=== PATIENT | female | born 1950 | race Caucasian/White ===

== ENCOUNTER 2018-03-07 09:04 | Outpatient (CLI) | payer MEDICARE ==
--- NOTE | 2018-03-07 11:40 | CT ---
CT PULMONARY LUNG SCAN: HISTORY: Smoker for 41 years, smoking 1 pack a day. The patient does currently smoke. COMPARISON: A 12/09/2015 study. FINDINGS: The lungs are clear of any infiltrative process. There are some small ground-glass to semisolid nodu les within the right upper lobe. All of these measure in the 3 mm range. These are best seen on axi al image 28 as 3 nodules, all of which appear stable as compared to the prior examination. There are no additional new nodules seen. I do not appreciate any significant mediastinal adenopathy. There are some moderate coronary calcifi cations noted. Visualized liver parenchyma does not show any definite findings. Questionable slight nodular contour to the liver which may is incompletely visualized but could be slightly enlarged. T he spleen is also incompletely visualized but also may be slightly enlarged. A right pericardial lymph node is demonstrated. It is 12 mm in size and stable. IMPRESSION: 1. Lung RDS category 2 - negative: stable appearance to some small ground-glass nodules of the righ t upper lobe. 2. Incidental note is made of a suggestion of possibly some mild hepatosplenomegaly. Both the liver and spleen are incompletely visualized on this exam. Clinical correlation and correlation with lab values is suggested. RECOMMENDATIONS: 1. Low-dose CT followup in 1 year is recommended. 2. Moderate coronary artery calcifications are incidentally seen. POS: [facility]
== END 2018-03-07 09:05 | disposition home or self-care (01) ==
LOC: CT 09:04
PROVIDERS: ATTEND Nurse Practitioner
DX: F17.210 Nicotine dependence, cigarettes, uncomplicated (principal)
CPT/HCPCS: G0297

== ENCOUNTER 2018-03-26 11:22 | Outpatient (CLI) | payer MEDICARE | END 2018-03-26 11:23 | disposition home or self-care (01) | LOC: DTY/OP 11:22 | PROVIDERS: ATTEND Nurse Practitioner | DX: E11.9 Type 2 diabetes mellitus without complications (principal) | CPT/HCPCS: 97802 ==

== ENCOUNTER 2018-04-04 11:37 | Day surgery (SDC) | payer MEDICARE ==
[2018-04-03 12:18] VITALS: BMI 35.4
[2018-04-04] MEDS ORDERED: PROPOFOL 200 MG/20 ML VIAL ONE (19:59)
--- NOTE | 2018-04-04 21:30 | OP ---
DATE OF PROCEDURE: 04/04/2018 PROCEDURE PERFORMED: Esophagogastroduodenoscopy with biopsy and colonoscopy with polypectomy. INDICATION FOR PROCEDURE: Left lower quadrant abdominal pain, right lower quadrant abdominal pain, nausea, and vomiting. DESCRIPTION OF PROCEDURE: After the risks and benefits of the procedures were explained to the patient including risks of bleeding, infection, perforation, reactions to anesthesia, aspiration and/or pain, informed consent was obtained. The patient was then taken to the endoscopy suite, where deep sedation was administered via propofol and anesthesia support. Once adequate sedation was achieved, the standard gastroscope was introduced into the mouth with intubation of the esophagus, stomach and the proximal small intestine with the findings listed below. Upon completion of the EGD, all equipment was removed from the patient and the patient was then rotated 180 degrees on the bed in preparation for the colonoscopy. After a digital rectal examination, the standard colonoscope was introduced into the rectum and advanced to the cecum with some difficulty secondary to prep quality. The quality of the prep was fair to poor with the prep being fair within the transverse and left colon, but poor within the right colon with a significant amount of retained solid stool. The patient tolerated the procedure well with no immediate perioperative complications. Upon completion of the colonoscopy, the patient was taken to Day Stay in satisfactory condition. EGD FINDINGS: Esophagus: Normal-appearing mucosa was seen in the proximal and mid esophagus. Small (grade 1) esophageal varices were seen in the distal esophagus without any evidence of active/recent bleeding or high-risk stigmata of bleeding. There was no evidence of erosions, ulcerations, mass lesions, strictures/stenoses seen throughout the entire esophagus. Stomach: A moderate amount of diffuse red spots, measuring 1 to 2 mm in size were seen throughout the entire stomach without any associated erosions or ulcerations. Otherwise, the mucosa in the stomach appeared normal in the cardia, fundus, body, greater curvature, antrum, and incisura. There was no evidence of erosions, ulcerations, mass lesions, or active/recent bleeding. Duodenum: A 5- to 6-mm polyp was seen in the duodenal bulb at just proximal to the duodenal sweep. Multiple biopsies were taken from this polyp for evaluation and placed in a specimen jar. Otherwise, the duodenal bulb and second portion of the duodenum appeared normal without any evidence of erosions, ulcerations, mass, lesions or active/recent bleeding. IMPRESSION: 1. Small (grade 1) esophageal varices seen in the distal esophagus, that flattened upon insufflation. 2. Mild portal hypertensive gastropathy. 3. A 5- to 6-mm duodenal polyp, status post biopsies. COLONOSCOPY FINDINGS: Digital rectal exam, perianal skin tags and small external examinations were seen on external exam. Colon findings: A moderate amount of stool was seen in the left colon and transverse colon, that was somewhat amenable to aggressive irrigation and suctioning with adequate views for the evaluation of mucosal lesions greater than 5 mm in size. However, within the right colon, there was a significant amount of retained solid/adherent stool seen in the cecum and proximal ascending colon precluding visualization despite attempts to irrigate with extensive lavage. Of the mucosa seen, normal mucosa was seen at the ileocecal valve as well as at the appendiceal orifice and within the cecum itself. A 5- to 6-mm polyp was seen in the proximal ascending colon and completely removed with snare cautery polypectomy. It was completely removed and retrieved and placed in a specimen jar for evaluation. However, the mucosal defect made was a bit larger than anticipated, but subsequently closed with hemoclips x1 with good approximation of the mucosal defect. Two additional polyps were seen in the transverse colon, measuring approximately 4 to 6 mm in size and completely removed with snare cautery polypectomy. They were retrieved and placed in a specimen jar for evaluation. Normal-appearing mucosa was then seen in the descending colon and sigmoid colon; however, a 5- to 6-mm polyp was seen in the rectum and completely removed with snare cautery polypectomy. It was retrieved and placed in a specimen jar for evaluation. On rectal retroflexion, normal findings were seen. IMPRESSION: 1. A large amount of retained solid/adherent stool was seen throughout the entire colon with poor visualization within the right colon and fair visualization in the transverse and left colon. However, at this time, lesions less than 5 mm in size could have been missed. I would recommend a repeat colonoscopy within the next 6 to 12 months for completion. 2. We will follow up on the biopsy results both within the upper endoscopy and colonoscopy with further testing based on pathology report. 3. We will place the patient on PPI 40 mg daily for probable acid reflux symptoms. 4. Nonselective beta blockade is not indicated at this time, but would rather repeat the upper endoscopy in 2 years for esophageal varix surveillance. 5. I would recommend a higher fiber diet given the presence of hemorrhoids on external examination. 6. No etiology for her abdominal pains was seen during this examination increasing the likelihood of a possible IBS type picture. Job ID: [id number]
--- NOTE | 2018-04-20 09:03 | EKG ---
Test Reason : PREOP Blood Pressure : / mmHG Vent. Rate : 064 BPM Atrial Rate : 064 BPM P-R Int : 142 ms QRS Dur : 074 ms QT Int : 404 ms P-R-T Axes : 045 056 076 degrees QTc Int : 416 ms Normal sinus rhythm Anterior infarct , age undetermined T wave abnormality, consider lateral ischemia Abnormal ECG Confirmed by FRANNY CALLES MD ([id number]) on 04/20/2018 9:02:50 AM Referred By: JUJU Confirmed By:FRANNY CALLES MD
== END 2018-04-04 16:32 | disposition home or self-care (01) ==
LOC: SDC 11:37
PROVIDERS: ATTEND Internal Medicine
PROC: 0DB98ZZ Excision of Duodenum, Via Natural or Artificial Opening Endoscopic (ICD-10-PCS; principal; 2018-04-04)
PROC: 0DBK8ZZ Excision of Ascending Colon, Via Natural or Artificial Opening Endoscopic (ICD-10-PCS; 2018-04-04)
PROC: 0DBL8ZZ Excision of Transverse Colon, Via Natural or Artificial Opening Endoscopic (ICD-10-PCS; 2018-04-04)
PROC: 0DBP8ZZ Excision of Rectum, Via Natural or Artificial Opening Endoscopic (ICD-10-PCS; 2018-04-04)
DX: D12.2 Benign neoplasm of ascending colon (principal); D12.3 Benign neoplasm of transverse colon; D12.8 Benign neoplasm of rectum; K63.5 Polyp of colon; K31.7 Polyp of stomach and duodenum; K76.6 Portal hypertension; K31.89 Other diseases of stomach and duodenum; I85.00 Esophageal varices without bleeding; K64.4 Residual hemorrhoidal skin tags; I10 Essential (primary) hypertension; E11.9 Type 2 diabetes mellitus without complications; F41.9 Anxiety disorder, unspecified; F32.9 Major depressive disorder, single episode, unspecified; F17.210 Nicotine dependence, cigarettes, uncomplicated; G89.29 Other chronic pain; M25.562 Pain in left knee; M25.561 Pain in right knee; Z88.2 Allergy status to sulfonamides; Z88.8 Allergy status to other drugs, medicaments and biological substances; Z91.048 Other nonmedicinal substance allergy status; Z90.49 Acquired absence of other specified parts of digestive tract; Z98.51 Tubal ligation status; Z91.018 Allergy to other foods; Z79.4 Long term (current) use of insulin; Z79.899 Other long term (current) drug therapy; Z98.890 Other specified postprocedural states
CPT/HCPCS: 88305; 93005; 93010; J2704

== ENCOUNTER 2018-04-17 10:17 | Outpatient (CLI) | payer MEDICARE ==
--- NOTE | 2018-04-17 13:08 | CT ---
CT ABDOMEN AND PELVIS WITH CONTRAST: Technique: Multiple contiguous axial images were obtained through the abdomen and pelvis with IV enha ncement. Indications: Bi-lower quadrant abdominal pain. Nausea. Vomiting. FINDINGS: Lung bases are clear. Liver shows mild irregular contour. Spleen is upper normal size. Spleen is measured at 13.5 cm AP dim ension. Correlate clinically for cirrhosis and possibly early portal hypertension. There is a nodule involving the left adrenal gland measuring 1.7 cm. This nodule is indeterminate on this single phase contrasted study. The kidneys are unremarkable. Small bowel loops are normal caliber. Appendix not identified. Stool throughout the colon. No CT evidence of diverticulitis. Aorta normal c aliber. Images through the pelvis show unremarkable uterus and adnexa. No ascites. Left hip prosthesis. Osseous structures otherwise unremarkable. Uterus and adnexa appear unremarkable. There are numerous large venous varicosities seen in the adipose tissue of the lower abdomen and pelv is. There is a small umbilical hernia with mesenteric fat herniated through the defect. IMPRESSION: 1. The liver shows mild peripheral irregularity of the liver margin and there is a prominent caudate lobe. There is borderlines splenomegaly. Consider early cirrhosis and portal hypertension given the h istory of alcohol abuse. 2. Indeterminate left adrenal nodule. This nodule was imaged on low dose CT of 03-07-18 and 12-08-15 an d appears stable although the nodule is poorly evaluated on both exams due to low dose protocol. Stab ility, however, would indicate a benign lesion. 3. Small umbilical hernia. 4. Numerous subcutaneous varicosities seen in the lower abdomen and pelvis. POS: [facility]
== END 2018-04-17 10:18 | disposition home or self-care (01) ==
LOC: BICCT 10:17
PROVIDERS: ATTEND Internal Medicine
DX: R10.32 Left lower quadrant pain (principal); R10.31 Right lower quadrant pain; R13.10 Dysphagia, unspecified; R11.2 Nausea with vomiting, unspecified; R14.0 Abdominal distension (gaseous); E27.9 Disorder of adrenal gland, unspecified; K42.9 Umbilical hernia without obstruction or gangrene; I83.90 Asymptomatic varicose veins of unspecified lower extremity
CPT/HCPCS: 74177

== ENCOUNTER 2018-10-23 17:28 | Inpatient (IN) | payer MEDICARE ==
[2018-10-23 18:33] LABS: #Eosinphils 0.1 thou/uL (0.0-0.7); #Lymphocytes 1.3 thou/uL (1.20-3.40); #Monocytes 0.4 thou/uL (0.11-0.59); #Neutrophils 4.6 thou/uL (1.40-6.50); %Basophils 0.4 % (0.0-1.0); %Eosinophils 1.6 % (0.0-10.0); %Lymphocytes 20.1 % (21.0-51.0); %Monocytes 6.6 % (0.0-10.0); %Neutrophils 71.4 % (42.0-75.0); Hemoglobin 13.4 g/dL (12.0-16.0); Mean Corpuscular HGB CONC 31.3 g/dL (32.0-36.0); Mean Corpuscular Hemoglobin 29.8 pg (27.0-31.0); Mean Corpuscular Volume 95.2 fL (78.0-98.0); Mean Platelet Volume 8.9 fL (7.4-10.4); Platelet Count 123 thou/uL (130-400); RBC Distribution Width 12.6 % (11.5-14.5); Red Blood Cell (RBC) Count 4.51 mill/uL (4.20-5.40); White Blood Cell (WBC) Count 6.5 thou/uL (4.8-10.8)
[2018-10-23 18:53] LABS: ALT (SGPT) 19 U/L (8-55); AST (SGOT) 16 U/L (5-34); Albumin 3.5 g/dL (3.4-4.8); Alkaline Phosphatase 132 U/L (40-150); Anion Gap 11 mmol/L (10-20); BUN (Urea Nitrogen) 10 mg/dL (9.8-20.1); Bilirubin, Total 0.6 mg/dL (0.2-1.2); Calc. Creatinine Clearance 0 mL/min (70-130); Calcium 9.3 mg/dL (7.8-10.44); Carbon Dioxide 30 mmol/L (23-31); Chloride 102 mmol/L (98-107); Estimated GFR-MDRD 71; Globulin 4.4 g/dL (2.4-3.5); Glucose 136 mg/dL (80-115); Potassium 3.5 mmol/L (3.5-5.1); Protein, Total 7.9 g/dL (6.0-8.3); Sodium 139 mmol/L (136-145)
--- NOTE | 2018-10-23 19:46 | ULT ---
LEFT LOWER EXTREMITY VENOUS DOPPLER: 10/23/18 HISTORY: Pain, swelling and redness. COMPARISON: None. FINDINGS: Real time sanford scale, color Doppler and spectral analysis of the left lower extremity venous Doppler is performed. The common femoral, femoral, proximal portions of the greater saphenous and deep femo ral veins as well as the popliteal and posterior tibial veins were interrogated. Mild lower extremity edema. Normal flow, augmentation and compression. IMPRESSION: No deep venous thrombosis. Mild lower extremity edema. POS: [facility]
[2018-10-23] MEDS ORDERED: Ondansetron ODT 4 MG TAB PO PRN (20:01)
[2018-10-23] MEDS ORDERED: Dextrose 50% Abboject 50 ML SYRINGE SLOW IVP PRN (20:01)
[2018-10-23] MEDS ORDERED: Acetaminophen 325 MG TAB PO PRN (20:01)
[2018-10-23] MEDS ORDERED: Dextrose 5% in Water 1,000 ML IV PRN (20:01)
[2018-10-23] MEDS ORDERED: Ondansetron PF 4 MG/2 ML Vial IVP PRN (20:01)
[2018-10-23] MEDS ORDERED: Acetaminophen 650 MG Suppository PR PRN (20:01)
[2018-10-23 20:35] VITALS: BMI 35.6
[2018-10-23] MEDS: Piperacillin/Tazobactam 4.5 GM in Sodium Chloride 0.9% 100 ML IVPB SCH (22:00)
[2018-10-23] MEDS ORDERED: Gabapentin 300 MG CAP PO SCH (23:30)
[2018-10-23] MEDS ORDERED: FLUoxetine HCl 20 MG CAP PO SCH (23:30)
[2018-10-24 05:54] LABS: #Basophils 0.1 thou/uL (0.0-0.2); #Eosinphils 0.1 thou/uL (0.0-0.7); #Lymphocytes 1.3 thou/uL (1.20-3.40); #Monocytes 0.4 thou/uL (0.11-0.59); #Neutrophils 3.2 thou/uL (1.40-6.50); %Eosinophils 2.8 % (0.0-10.0); %Monocytes 7.2 % (0.0-10.0); Hemoglobin 11.7 g/dL (12.0-16.0); Mean Corpuscular HGB CONC 31.8 g/dL (32.0-36.0); Mean Corpuscular Hemoglobin 30.5 pg (27.0-31.0); Mean Corpuscular Volume 96.1 fL (78.0-98.0); Mean Platelet Volume 8.9 fL (7.4-10.4); Platelet Count 108 thou/uL (130-400); RBC Distribution Width 12.5 % (11.5-14.5); Red Blood Cell (RBC) Count 3.83 mill/uL (4.20-5.40); White Blood Cell (WBC) Count 5.1 thou/uL (4.8-10.8)
[2018-10-24] MEDS: Piperacillin/Tazobactam 4.5 GM in Sodium Chloride 0.9% 100 ML IVPB SCH ×3 (06:00→21:21)
[2018-10-24 06:16] LABS: Anion Gap 11 mmol/L (10-20); BUN (Urea Nitrogen) 13 mg/dL (9.8-20.1); Calc. Creatinine Clearance 97 mL/min (70-130); Calcium 8.5 mg/dL (7.8-10.44); Carbon Dioxide 27 mmol/L (23-31); Chloride 103 mmol/L (98-107); Estimated GFR-MDRD 71; Glucose 232 mg/dL (80-115); Potassium 3.8 mmol/L (3.5-5.1); Sodium 137 mmol/L (136-145)
[2018-10-24] MEDS: HumaLOG 300 UNITS/3 ML VIAL SC PRN ×4 (06:35→20:49)
--- NOTE | 2018-10-24 07:46 | HP ---
PRIMARY CARE DOCTOR: Not reported. CODE STATUS: Full code. TIME OF EVALUATION: 8 p.m. CHIEF COMPLAINT: Left lower extremity swelling. HISTORY OF PRESENT ILLNESS: This is a 68-year-old female patient with past medical history of liver cirrhosis, hep C, diabetes type 2, hypertension, came to the hospital after having left lower extremity swelling very severe with no clear triggers, no alleviating factors. Symptoms had been getting worse over the past week. Associated with redness, swelling, ulcerations, decreased range of motion , tenderness. The patient also reported having some fever when she was at her PCP. Of note, the patient also had some multiple DVTs in the past and had been on anticoagulation, but had ran out of blood thinners recently. REVIEW OF SYSTEMS: CONSTITUTIONAL: The patient has fever. No chills or generalized weakness. RESPIRATORY: No cough, sputum production, or shortness of breath. CARDIOVASCULAR: No chest pain or palpitation. GASTROINTESTINAL: No nausea, vomiting, diarrhea, or abdominal pain. SWITCH OPERATOR: No dizziness, headache, or feeling lightheaded. GENITOURINARY: No burning on urination. EXTREMITIES: Bilateral leg swelling as described in HPI. All other systems were reviewed and negative except for the findings mentioned above. PAST MEDICAL HISTORY: As mentioned in the HPI. FAMILY HISTORY: Reviewed, noncontributory to current presentation PAST SURGICAL HISTORY: Left hip replacement, appendectomy. PSYCHIATRIC HISTORY: Includes depression. SOCIAL HISTORY: The patient drinks socially every week. The patient denies drug use. The patient currently use tobacco, smoke cigarettes, smoked for 30 years, smoked one pack per day. KNOWN ALLERGIES: Dexatrim Natural, divalproex, sulfa, Wellbutrin. REPORTED MEDICATIONS: 1. Gabapentin. 2. Lantus. 3. Lasix. 4. Magnesium sulfate. 5. Prozac. 6. NovoLog. 7. Metformin. 8. Metoprolol. 9. Pramipexole. 10. Eliquis. The patient has not been taking medications due to financial issues. PHYSICAL EXAMINATION: VITAL SIGNS: On presentation, blood pressure 171/108 with heart rate 105, respiratory rate was 20, temperature 98.4, and oxygen saturation was 100% on room air. GENERAL: The patient is alert, oriented, not in acute distress. HEAD: Eyes, normal conjunctivae. Moist oral mucosa. Anicteric. No JVD. RESPIRATORY: Bilateral air entry. No rales. No wheezes. Symmetric expansion. CARDIOVASCULAR: Normal rate, regular rhythm. No murmurs. No gallop. Bilateral leg edema as described in extremities. ABDOMEN: Soft. Normal bowel sounds. MUSCULOSKELETAL: Baseline range of motion and strength. SKIN: Warm, intact. No pallor. No rash except for bilateral lower extremities where the patient has chronic atrophic changes with darkening of bilateral legs and the left side is worse with increased redness, nonhealing ulcers, some __, decreased range of motion due to tenderness. Capillary refill seems to be intact. NEUROLOGIC: No evidence of any new focal weakness. Cranial nerves seem to be intact. PSYCH: The patient is in good mood. No anxiety. Optimal judgment. DIAGNOSTIC DATA: Vascular ultrasound, the patient has no deep venous thrombosis. Mild lower extremity edema. LABORATORY DATA: Reviewed. The patient has white count 6.5, hemoglobin 13.4, MCV 95.2, platelet count 133. Sodium 139, potassium 3.5, chloride 102, carbon dioxide 30, anion gap 11, BUN 10, creatinine 0.81, GFR 71, glucose 136. LFTs were negative. Beta-natriuretic peptide 37. ASSESSMENT AND PLAN: The patient will be placed in the hospital with following medical problems: 1. Lower extremity cellulitis. The patient has history of diabetes. We will cover the patient with broad-spectrum antibiotics including for Staph, gram-negative anaerobes, we will follow cultures, we will treat accordingly. 2. Uncontrolled diabetes with blood sugar of 136. We will start the patient on sliding scale for optimal control. Low carb diet is recommended. We will adjust the treatment depending on the patient's response to treatment. 3. History of hepatitis C, this is chronic, monitor. Reconcile home medications. 4. Uncontrolled hypertension. The patient presented with systolic 171, diastolic 108, reconcile home medications. The patient was not taking medications due to social issues. 5. Diabetic polyneuropathy. Continue gabapentin. Reconcile hospital and home medications. 6. The patient has chronic multiple deep vein thrombosis. The patient had been on Eliquis before, but ran out of medication due to financial issues. We will continue the patient on Eliquis as inpatient, will need case managers to assess the patient for any possibility to assist financially to manage medications. 7. Deep venous thrombosis prophylaxis, the patient is on anticoagulation. Job ID: [id number] MTDD
[2018-10-24] MEDS: Pramipexole Di-HCl 1 MG TAB PO PRN (07:54)
[2018-10-24] MEDS: Vancomycin HCl 1.25 GM in Sodium Chloride 0.9% 250 ML 250 ML IVPB SCH (08:15)
[2018-10-24] MEDS: Apixaban 2.5 MG TAB PO SCH ×2 (08:15→20:54)
[2018-10-24] MEDS ORDERED: Enoxaparin Sodium 40 MG/0.4 ML SYRINGE SC SCH (09:00)
--- NOTE | 2018-10-24 17:29 | PDOC.PN ---
- Subjective Encounter Start Date: 10/24/18 Encounter Start Time: 10:00 Pt seen for followup re: leg wounds. c/o discharge from LLE wounds. - Objective Resuscitation Status - Order Detail: 10/23/18 20:01 Resuscitation Status Routine Resuscitation Status: FULL: Full Resuscitation MAR Reviewed: Yes Vital Signs & Weight: Vital Signs (12 hours) Temp Pulse Resp BP BP Pulse Ox 10/24/18 15:18 97.6 F 78 18 136/79 97 10/24/18 11:53 98 F 83 18 157/94 H 95 10/24/18 08:00 95 10/24/18 07:27 97.8 F 77 18 132/75 95 Weight Admit Weight 201 lb Weight 201 lb I&O: 10/23/18 10/24/18 10/25/18 06:59 06:59 06:59 Intake Total 480 Balance 480 Result Diagrams: 10/24/18 05:21 10/24/18 05:21 Additional Labs: Accuchecks 10/24/18 10/24/18 10/24/18 16:02 10:54 04:19 POC Glucose 240 H 299 H 245 H 10/23/18 20:38 POC Glucose 146 H Labs reviewed by me Phys Exam - Physical Examination Obese HEENT: moist MMs Neck: supple Respiratory: clear to auscultation bilateral Cardiovascular: RRR Gastrointestinal: soft Neurological: moves all 4 limbs Psychiatric: normal affect Deviation from normal: wounds as documented Dx/Plan (1) Cellulitis Code(s): L03.90 - CELLULITIS, UNSPECIFIED Status: Acute Comment: continue IV Zosyn and IV vancomycin (2) DM2 (diabetes mellitus, type 2) Status: Chronic Comment: continue accuchecks, insulin sliding scale (3) HTN (hypertension) Code(s): I10 - ESSENTIAL (PRIMARY) HYPERTENSION Status: Chronic Comment: monitor vital signs, initiate antihypertensives as needed - Plan continue antibiotics, PT/OT, out of bed/ambulate * . Pt has been started on apixaban for previously diagnosed DVT Review of Systems - Review of Systems Constitutional: negative: fever, chills, sweats, weakness, malaise Cardiovascular: negative: chest pain, palpitations, orthopnea, paroxysmal nocturnal dyspnea, edema, light headedness Skin: Rash, Lesions. negative: Steve, Bruising - Medications/Allergies Allergies/Adverse Reactions: Allergies Allergy/AdvReac Type Severity Reaction Status Date / Time Guinean ginseng Allergy Verified 10/23/18 20:48 [From Dexatrim Natural] bupropion Allergy Verified 10/23/18 20:48 chromium dinicotinate Allergy Verified 10/23/18 20:48 [From Dexatrim Natural] divalproex sodium Allergy Verified 10/23/18 20:48 [From Depakote] green tea Allergy Verified 10/23/18 20:48 [From Dexatrim Natural] Sulfa (Sulfonamide Allergy Verified 10/23/18 20:48 Antibiotics) Medications: Current Medications Acetaminophen (Tylenol) 650 mg PO Q4H PRN PRN Reason: Headache/Fever/Mild Pain (1-3) Last Admin: 10/24/18 15:15 Dose: 650 mg Acetaminophen (Tylenol) 650 mg AK Q4H PRN PRN Reason: Headache/Fever/Mild Pain (1-3) Apixaban (Eliquis) 2.5 mg PO BID [facility] Last Admin: 10/24/18 08:15 Dose: 2.5 mg Dextrose/Water (Dextrose 50%) 25 gm SLOW IVP PRN PRN PRN Reason: Hypoglycemia Dicyclomine HCl (Bentyl) 20 mg PO BIDPRN PRN PRN Reason: GI Cramping Fluoxetine HCl (Prozac) 20 mg PO QPM ALEYDA Gabapentin (Neurontin) 300 mg PO HS [facility] Glucagon (Glucagon) 1 mg IM PRN PRN PRN Reason: Hypoglycemia Dextrose/Water (D5w) 1,000 mls @ 0 mls/hr IV .Q0M PRN PRN Reason: Hypoglycemia Piperacillin Sod/Tazobactam (Sod 4.5 gm/ Sodium Chloride) 100 mls @ 200 mls/hr IVPB Q8HR [facility] Last Admin: 10/24/18 14:09 Dose: 100 mls Vancomycin HCl 1.25 gm/ Sodium (Chloride) 250 mls @ 166.667 mls/hr IVPB DAILY [facility] Last Admin: 10/24/18 08:15 Dose: 250 mls Insulin Human Lispro (Humalog) 0 units SC .MILD SLIDING SCALE PRN PRN Reason: Mild Correctional Scale Last Admin: 10/24/18 16:41 Dose: 3 unit Metoprolol Succinate (Toprol Xl) 25 mg PO QAM [facility] Last Admin: 10/24/18 07:54 Dose: 25 mg Miscellaneous Medication (Pharmacy To Dose) 1 each IVPB PRN PRN PRN Reason: sssi Stop: 11/02/18 20:14 Ondansetron HCl (Zofran Odt) 4 mg PO Q6H PRN PRN Reason: Nausea/Vomiting Ondansetron HCl (Zofran) 4 mg IVP Q6H PRN PRN Reason: Nausea/Vomiting Pramipexole Dihydrochloride (Mirapex) 1.5 mg PO TIDPRN PRN PRN Reason: Restless legs Last Admin: 10/24/18 07:54 Dose: 1.5 mg
[2018-10-24] MEDS ORDERED: Calcium Carbonate 500 MG ChewTAB PO PRN (19:06)
[2018-10-24] MEDS: Morphine 2 MG/ML SYRINGE SLOW IVP PRN (19:35)
[2018-10-24] MEDS: Dicyclomine 20 MG TAB PO PRN (20:52)
[2018-10-24] MEDS: FLUoxetine HCl 20 MG CAP PO SCH (20:52)
[2018-10-24] MEDS: Gabapentin 300 MG CAP PO SCH (20:52)
[2018-10-24] MEDS ORDERED: Dextrose 5% in Water 1,000 ML IV PRN (21:48)
[2018-10-24] MEDS ORDERED: HumaLOG 300 UNITS/3 ML VIAL SC PRN (21:48)
[2018-10-25] MEDS: Morphine 2 MG/ML SYRINGE SLOW IVP PRN ×3 (04:05→22:39)
[2018-10-25] MEDS: Piperacillin/Tazobactam 4.5 GM in Sodium Chloride 0.9% 100 ML IVPB SCH ×2 (05:16→14:11)
[2018-10-25] MEDS: HumaLOG 300 UNITS/3 ML VIAL SC PRN ×3 (05:20→16:46)
[2018-10-25] MEDS: Apixaban 2.5 MG TAB PO SCH ×2 (08:03→20:39)
[2018-10-25] MEDS: Pramipexole Di-HCl 1 MG TAB PO PRN (08:12)
[2018-10-25] MEDS: Vancomycin HCl 1.25 GM in Sodium Chloride 0.9% 250 ML 250 ML IVPB SCH (09:32)
[2018-10-25] MEDS ORDERED: Famotidine 20 MG TAB PO SCH (14:30)
--- NOTE | 2018-10-25 15:16 | CON ---
DATE OF CONSULTATION: 10/25/2018 REASON FOR CONSULTATION: Cellulitis, left leg. HISTORY OF PRESENT ILLNESS: A 68-year-old with a history of type 2 diabetes, reported hepatitis C, although this is not yet confirmed by the patient and liver cirrhosis, who has chronic venous stasis dermatitis, venous insufficiency with ulcerations. The patient developed worsening inflammatory changes with pain in the left the leg and was brought in because of that. No fever or chills. No headaches. No sore throat, odynophagia, or dysphagia. No dyspnea or chest pain. No diarrhea. No genitourinary symptoms. PAST MEDICAL HISTORY: Type 2 diabetes, hypertension; reported chronic hep C, although this needs to be confirmed; liver cirrhosis, chronic stasis dermatitis, venous insufficiency with ulcerations in lower extremities. PAST SURGICAL HISTORY: Left hip replacement, appendectomy. SOCIAL HISTORY: Drinks on a weekly basis. Reportedly used to drink heavily in the past, but cut down about 8 years ago. Current smoker about a pack a day. CURRENT MEDICATIONS: 1. Tylenol. 2. Eliquis. 3. Dextrose. 4. Bentyl. 5. Pepcid. 6. Prozac. 7. Neurontin. 8. Insulin. 9. Metoprolol. 10. Ondansetron. 11. Zosyn. 12. Vancomycin. PHYSICAL EXAMINATION: VITAL SIGNS: T-max 98, blood pressure 120/70, pulse 63, respirations 18, O2 saturation 96 on room air. SKIN: Stasis dermatitis changes in both right and left legs. Multiple small ulcerations in the left leg. There is a linear bigger one in the lateral aspect of the left leg, which measures about 4.5 cm with a fresh red base and light yellow hyperkeratosis around the ulcer. There is erythema in the left leg, which is confluent. More proximally right above the left knee lateral aspect, there is an area of ulceration covered with dark scab with surrounding erythema, which is markedly tender to palpation. No drainage is noted. The patient is voiding in the toilet. She has a peripheral IV access. No Welsh catheter. No lymphadenopathy. Ocular movements are conjugate. Oral cavity with numerous missing teeth. Remainder of ones with marked decay. NECK: Supple. No jugular vein distention. LUNGS: Symmetric air entry. HEART: S1, S2. Regular rate and rhythm. No S3 or S4. ABDOMEN: Slightly distended. Question of hepatomegaly about 3 cm below the right costal margin. No splenomegaly. No bladder distention. EXTREMITIES: Chronic osteoarthrosis in knees and ankles. Pulses, faintly palpable dorsalis pedis pulses. I could not feel posterior tibialis. Popliteals are 1+. She is able to move extremities on command. NEUROLOGIC: She is awake, oriented, and follows commands. LABORATORY DATA: White cell count was 6.5 and 5.1, hemoglobin 13.4, platelets 123, 71.4% neutrophils. Sodium 137, creatinine 0.81. Liver enzymes normal. Albumin 3.5. Hepatitis C antibody was nonreactive. Two sets of blood culture, no growth at 48 hours. IMAGING STUDIES: Duplex ultrasound showed no evidence of deep vein thrombosis. Abdominal and pelvis CT from April of this year showed findings consistent with cirrhosis with portal hypertension, varicosities seen in the lower abdomen and pelvis. There is a pathology from duodenal and large intestine polyp biopsy, which showed tubular adenoma. ASSESSMENT: 1. Type 2 diabetes. 2. Liver cirrhosis probably due to alcoholism, probably some element of steatohepatitis as well. 3. Venous insufficiency with small ulcers in the left leg, possible superimposed cellulitis. DISCUSSION: The patient has mild cellulitis and she does have some areas with crusting and ulceration. The risk of Staphylococcus aureus infection is a bit higher than the average. The typical organisms associated with cellulitis including beta-hemolytic streptococci, are broadened to gram-negative rods in the case of patients with cirrhosis including E. coli, Pseudomonas, etc. We will switch to cefepime, which has better streptococcal coverage. Discontinue Zosyn. Continue vancomycin. Evidently, the patient is at high risk for future complications in view of the continuing smoking and the fact that she has not completely discontinued alcoholic beverage use. Job ID: [id number]
--- NOTE | 2018-10-25 16:39 | PDOC.PN ---
- Subjective Encounter Start Date: 10/25/18 Encounter Start Time: 09:40 Pt seen for followup re; cellulitis. Feels better. - Objective Resuscitation Status - Order Detail: 10/23/18 20:01 Resuscitation Status Routine Resuscitation Status: FULL: Full Resuscitation MAR Reviewed: Yes Vital Signs & Weight: Vital Signs (12 hours) Temp Pulse Resp BP BP Pulse Ox 10/25/18 12:38 97.6 F 63 18 127/78 96 10/25/18 08:00 97.7 F 65 14 124/78 97 Weight Admit Weight 201 lb Weight 201 lb I&O: 10/24/18 10/25/18 10/26/18 06:59 06:59 06:59 Intake Total 1740 600 Balance 1740 600 Result Diagrams: 10/24/18 05:21 10/24/18 05:21 Additional Labs: Accuchecks 10/25/18 10/24/18 05:22 20:50 POC Glucose 210 H 266 H Labs reviewed by me Phys Exam - Physical Examination Obese HEENT: moist MMs Neck: supple Respiratory: clear to auscultation bilateral Cardiovascular: RRR Gastrointestinal: soft Neurological: moves all 4 limbs Psychiatric: normal affect Deviation from normal: wounds as documented Dx/Plan (1) Cellulitis Code(s): L03.90 - CELLULITIS, UNSPECIFIED Status: Acute Comment: continue IV cefepime and IV vancomycin (2) DM2 (diabetes mellitus, type 2) Status: Chronic Comment: continue accuchecks, insulin sliding scale; resume lantus insulin (3) HTN (hypertension) Code(s): I10 - ESSENTIAL (PRIMARY) HYPERTENSION Status: Chronic Comment: controlled - Plan * . Review of Systems - Review of Systems Gastrointestinal: negative: Nausea, Vomiting, Abdominal Pain, Diarrhea, Constipation, Melena, Hematochezia Genitourinary: negative: Dysuria, Frequency, Incontinence, Hematuria, Retention Musculoskeletal: Leg Pain, Foot Pain - Medications/Allergies Allergies/Adverse Reactions: Allergies Allergy/AdvReac Type Severity Reaction Status Date / Time Comoran ginseng Allergy Verified 10/23/18 20:48 [From Dexatrim Natural] bupropion Allergy Verified 10/23/18 20:48 chromium dinicotinate Allergy Verified 10/23/18 20:48 [From Dexatrim Natural] divalproex sodium Allergy Verified 10/23/18 20:48 [From Depakote] green tea Allergy Verified 10/23/18 20:48 [From Dexatrim Natural] Sulfa (Sulfonamide Allergy Verified 10/23/18 20:48 Antibiotics) Medications: Current Medications Acetaminophen (Tylenol) 650 mg PO Q4H PRN PRN Reason: Headache/Fever/Mild Pain (1-3) Last Admin: 10/24/18 15:15 Dose: 650 mg Acetaminophen (Tylenol) 650 mg NV Q4H PRN PRN Reason: Headache/Fever/Mild Pain (1-3) Apixaban (Eliquis) 2.5 mg PO BID [facility] Last Admin: 10/25/18 08:03 Dose: 2.5 mg Calcium Carbonate (Tums) 1,000 mg PO Q4H PRN PRN Reason: HEARTBURN/INDIGESTION Last Admin: 10/24/18 19:35 Dose: 1,000 mg Dextrose/Water (Dextrose 50%) 25 gm SLOW IVP PRN PRN PRN Reason: Hypoglycemia Dicyclomine HCl (Bentyl) 20 mg PO BIDPRN PRN PRN Reason: GI Cramping Last Admin: 10/24/18 20:52 Dose: 20 mg Famotidine (Pepcid) 20 mg PO BID ALEY[facility] Fluoxetine HCl (Prozac) 20 mg PO QPM [facility] Last Admin: 10/24/18 20:52 Dose: 20 mg Gabapentin (Neurontin) 300 mg PO HS [facility] Last Admin: 10/24/18 20:52 Dose: 300 mg Glucagon (Glucagon) 1 mg IM PRN PRN PRN Reason: Hypoglycemia Dextrose/Water (D5w) 1,000 mls @ 0 mls/hr IV .Q0M PRN PRN Reason: Hypoglycemia Vancomycin HCl 1.25 gm/ Sodium (Chloride) 250 mls @ 166.667 mls/hr IVPB DAILY [facility] Last Admin: 10/25/18 09:32 Dose: 250 mls Dextrose/Water (D5w) 1,000 mls @ 0 mls/hr IV .Q0M PRN PRN Reason: Hypoglycemia Cefepime HCl 1 gm/ Sodium (Chloride) 100 mls @ 200 mls/hr IVPB Q8HR [facility] Insulin Human Lispro (Humalog) 0 units SC .MODERATE SLIDING SC PRN PRN Reason: Moderate Correctional Scale Last Admin: 10/25/18 11:38 Dose: 6 unit Insulin Human Lispro (Humalog) 0 units SC .BEDTIME SLIDING SC PRN PRN Reason: Bedtime Correctional Scale Metoprolol Succinate (Toprol Xl) 25 mg PO QAM [facility] Last Admin: 10/25/18 08:03 Dose: 25 mg Miscellaneous Medication (Pharmacy To Dose) 1 each IVPB PRN PRN PRN Reason: sssi Stop: 11/02/18 20:14 Morphine Sulfate (Morphine) 2 mg SLOW IVP Q4H PRN PRN Reason: Moderate to Severe Pain (4-10) Last Admin: 10/25/18 04:05 Dose: 2 mg Non-Formulary Medication (Insulin Glargine,Hum.Rec.Anlog [Lantus Solostar]) 60 unit SQ BID [facility] Non-Formulary Medication (Metformin Hcl [Metformin Hcl]) 1,000 mg PO BID [facility] Ondansetron HCl (Zofran Odt) 4 mg PO Q6H PRN PRN Reason: Nausea/Vomiting Ondansetron HCl (Zofran) 4 mg IVP Q6H PRN PRN Reason: Nausea/Vomiting Pramipexole Dihydrochloride (Mirapex) 1.5 mg PO TIDPRN PRN PRN Reason: Restless legs Last Admin: 10/25/18 08:12 Dose: 1.5 mg
[2018-10-25] MEDS: Famotidine 20 MG TAB PO SCH (20:39)
[2018-10-25] MEDS: FLUoxetine HCl 20 MG CAP PO SCH (20:39)
[2018-10-25] MEDS: Gabapentin 300 MG CAP PO SCH (20:39)
[2018-10-25] MEDS: Insulin Glargine 60 UNITS in Pre-Filled Syringe SC SCH (20:40)
[2018-10-25] MEDS ORDERED: metFORMIN 500 MG TAB PO SCH (21:00)
[2018-10-25] MEDS ORDERED: Non-Formulary Item 1 EACH (Insulin Glargine,Hum.Rec.Anlog [Lantus Solostar] 60 UNIT) SQ SCH (21:00)
[2018-10-25] MEDS: Cefepime 1 GM in Sodium Chloride 0.9% 100 ML IVPB SCH (21:36)
[2018-10-26] MEDS: Cefepime 1 GM in Sodium Chloride 0.9% 100 ML IVPB SCH ×3 (05:22→21:49)
[2018-10-26] MEDS: HumaLOG 300 UNITS/3 ML VIAL SC PRN (05:31)
[2018-10-26] MEDS: Morphine 2 MG/ML SYRINGE SLOW IVP PRN ×2 (06:13→20:08)
[2018-10-26] MEDS: Pramipexole Di-HCl 1 MG TAB PO PRN ×2 (06:19→20:08)
[2018-10-26] MEDS: Apixaban 2.5 MG TAB PO SCH ×2 (07:55→20:08)
[2018-10-26] MEDS: Insulin Glargine 60 UNITS in Pre-Filled Syringe SC SCH ×2 (07:55→20:08)
[2018-10-26] MEDS: Famotidine 20 MG TAB PO SCH ×2 (07:56→20:07)
[2018-10-26] MEDS: Vancomycin HCl 1.25 GM in Sodium Chloride 0.9% 250 ML 250 ML IVPB SCH (07:56)
[2018-10-26] MEDS: metFORMIN 500 MG TAB PO SCH ×2 (07:56→16:36)
[2018-10-26 08:38] LABS: Vancomycin, Trough 11.2 ug/mL
[2018-10-26] MEDS ORDERED: Vancomycin HCl 500 MG in Sodium Chloride 0.9% 100 ML IVPB SCH (09:00)
--- NOTE | 2018-10-26 15:30 | PRG ---
DATE OF SERVICE: 10/26/2018 SUBJECTIVE: Still with pain in the left leg. Those are very much localized to the scabs. It looks like she has been scratching herself and it appears that this inflammatory process has developed from self excoriation induced inoculation of organisms in the areas of the skin in the left leg. No respiratory symptoms or abdominal pain or diarrhea. OBJECTIVE: VITAL SIGNS: Normal. GENERAL: Awake, alert, oriented. LUNGS: Clear. HEART: S1, S2. Regular rate. ABDOMEN: Soft. EXTREMITIES: Left leg still about the same. I was able to obtain some kind of light yellow/brown fluid from one of the scabs in the upper lateral aspect of her left leg and submitted for cultures. LABORATORY DATA: White cell count 5.1, hemoglobin 11.7, platelets 108. ASSESSMENT AND DISCUSSION: Type 2 diabetes, cirrhosis of liver probably due to alcoholism plus steatohepatitis, venous insufficiency, self excoriation with self-induced areas of impetigo and cellulitis in the left leg associated with the underlying stasis dermatitis and ulcerations. We will await for the culture results and then define further measures in terms of antimicrobial therapy change. The intention would be eventual to transition to oral antimicrobials for preparation for discharge planning. [place], she will need to completely stop drinking alcoholic beverages, but the chronicity and refractory nature of her chronic problem is pretty difficult to handle in the future and predict recurrent admissions, she probably would benefit from a low dose penicillin VK prophylaxis in the long-term basis. Job ID: [id number]
--- NOTE | 2018-10-26 16:25 | PDOC.PN ---
- Subjective Encounter Start Date: 10/26/18 Encounter Start Time: 09:20 Pt seen for followup re: cellulitis. Feels better today. - Objective Resuscitation Status - Order Detail: 10/23/18 20:01 Resuscitation Status Routine Resuscitation Status: FULL: Full Resuscitation MAR Reviewed: Yes Vital Signs & Weight: Vital Signs (12 hours) Temp Pulse Resp BP Pulse Ox 10/26/18 08:00 98 10/26/18 07:39 97.5 F L 62 16 137/78 98 Weight Admit Weight 201 lb Weight 201 lb I&O: 10/25/18 10/26/18 10/27/18 06:59 06:59 06:59 Intake Total 1740 1872 480 Balance 1740 1872 480 Result Diagrams: 10/24/18 05:21 10/24/18 05:21 Additional Labs: Accuchecks 10/26/18 10/26/18 10/25/18 11:37 05:32 19:50 POC Glucose 205 H 187 H 271 H 10/25/18 10/25/18 16:41 11:15 POC Glucose 248 H 293 H labs reviewed by me Phys Exam - Physical Examination Obese HEENT: moist MMs Neck: supple Respiratory: clear to auscultation bilateral Cardiovascular: RRR Gastrointestinal: soft Musculoskeletal: edema present Neurological: moves all 4 limbs Psychiatric: normal affect Deviation from normal: leg wounds as documented Dx/Plan (1) Cellulitis Code(s): L03.90 - CELLULITIS, UNSPECIFIED Status: Acute Comment: continue IV cefepime and IV vancomycin, follow cultures (2) DM2 (diabetes mellitus, type 2) Status: Chronic Comment: Lantus resumed yesterday (3) HTN (hypertension) Code(s): I10 - ESSENTIAL (PRIMARY) HYPERTENSION Status: Chronic Comment: controlled - Plan * . Pt is not sure if she is +ve for Hep C, will order hep C antibody test Review of Systems - Review of Systems Gastrointestinal: negative: Nausea, Vomiting, Abdominal Pain, Diarrhea, Constipation, Melena, Hematochezia Genitourinary: negative: Dysuria, Frequency, Incontinence, Hematuria, Retention Skin: Lesions - Medications/Allergies Allergies/Adverse Reactions: Allergies Allergy/AdvReac Type Severity Reaction Status Date / Time Guatemalan ginseng Allergy Verified 10/23/18 20:48 [From Dexatrim Natural] bupropion Allergy Verified 10/23/18 20:48 chromium dinicotinate Allergy Verified 10/23/18 20:48 [From Dexatrim Natural] divalproex sodium Allergy Verified 10/23/18 20:48 [From Depakote] green tea Allergy Verified 10/23/18 20:48 [From Dexatrim Natural] Sulfa (Sulfonamide Allergy Verified 10/23/18 20:48 Antibiotics) Medications: Current Medications Acetaminophen (Tylenol) 650 mg PO Q4H PRN PRN Reason: Headache/Fever/Mild Pain (1-3) Last Admin: 10/24/18 15:15 Dose: 650 mg Acetaminophen (Tylenol) 650 mg [place] Q4H PRN PRN Reason: Headache/Fever/Mild Pain (1-3) Apixaban (Eliquis) 2.5 mg PO BID [facility] Last Admin: 10/26/18 07:55 Dose: 2.5 mg Calcium Carbonate (Tums) 1,000 mg PO Q4H PRN PRN Reason: HEARTBURN/INDIGESTION Last Admin: 10/24/18 19:35 Dose: 1,000 mg Dextrose/Water (Dextrose 50%) 25 gm SLOW IVP PRN PRN PRN Reason: Hypoglycemia Dicyclomine HCl (Bentyl) 20 mg PO BIDPRN PRN PRN Reason: GI Cramping Last Admin: 10/24/18 20:52 Dose: 20 mg Famotidine (Pepcid) 20 mg PO BID [facility] Last Admin: 10/26/18 07:56 Dose: 20 mg Fluoxetine HCl (Prozac) 20 mg PO QPM [facility] Last Admin: 10/25/18 20:39 Dose: 20 mg Gabapentin (Neurontin) 300 mg PO HS [facility] Last Admin: 10/25/18 20:39 Dose: 300 mg Glucagon (Glucagon) 1 mg IM PRN PRN PRN Reason: Hypoglycemia Dextrose/Water (D5w) 1,000 mls @ 0 mls/hr IV .Q0M PRN PRN Reason: Hypoglycemia Cefepime HCl 1 gm/ Sodium (Chloride) 100 mls @ 200 mls/hr IVPB Q8HR [facility] Last Admin: 10/26/18 14:08 Dose: 100 mls Insulin Glargine 60 units/ (Miscellaneous Medication) 0.6 mls @ 0 mls/hr SC BID [facility] Last Admin: 10/26/18 07:55 Dose: 0.6 mls Vancomycin HCl 1.75 gm/ Sodium (Chloride) 500 mls @ 250 mls/hr IVPB 0900 [facility] Insulin Human Lispro (Humalog) 0 units SC .MODERATE SLIDING SC PRN PRN Reason: Moderate Correctional Scale Last Admin: 10/26/18 05:31 Dose: 2 unit Insulin Human Lispro (Humalog) 0 units SC .BEDTIME SLIDING SC PRN PRN Reason: Bedtime Correctional Scale Metformin HCl (Glucophage) 1,000 mg PO BID[facility] Last Admin: 10/26/18 07:56 Dose: 1,000 mg Metoprolol Succinate (Toprol Xl) [address] [facility] Last Admin: 10/26/18 07:56 Dose: 25 mg Miscellaneous Medication (Pharmacy To Dose) 1 each IVPB PRN PRN PRN Reason: sssi Stop: 11/02/18 20:14 Morphine Sulfate (Morphine) 2 mg SLOW IVP Q4H PRN PRN Reason: Moderate to Severe Pain (4-10) Last Admin: 10/26/18 06:13 Dose: 2 mg Ondansetron HCl (Zofran Odt) 4 mg PO Q6H PRN PRN Reason: Nausea/Vomiting Ondansetron HCl (Zofran) 4 mg IVP Q6H PRN PRN Reason: Nausea/Vomiting Pramipexole Dihydrochloride (Mirapex) 1.5 mg PO TIDPRN PRN PRN Reason: Restless legs Last Admin: 10/26/18 06:19 Dose: 1.5 mg
[2018-10-26 17:49] LABS: Hep C IgG Ab Non-Reactive (NonReactive); Hep C Index 0.18 S/CO (0-0.79)
[2018-10-26] MEDS: Gabapentin 300 MG CAP PO SCH (20:07)
[2018-10-26] MEDS: Dicyclomine 20 MG TAB PO PRN (20:08)
[2018-10-26] MEDS: FLUoxetine HCl 20 MG CAP PO SCH (20:08)
[2018-10-27] MEDS: Cefepime 1 GM in Sodium Chloride 0.9% 100 ML IVPB SCH ×3 (05:26→21:52)
[2018-10-27] MEDS: Morphine 2 MG/ML SYRINGE SLOW IVP PRN ×3 (05:27→22:16)
[2018-10-27] MEDS: Apixaban 2.5 MG TAB PO SCH ×2 (07:54→21:51)
[2018-10-27] MEDS: Famotidine 20 MG TAB PO SCH ×2 (07:55→21:51)
[2018-10-27] MEDS: metFORMIN 500 MG TAB PO SCH ×2 (07:55→17:54)
[2018-10-27] MEDS: Pramipexole Di-HCl 1 MG TAB PO PRN (08:06)
[2018-10-27] MEDS: Vancomycin HCl 1.75 GM in Sodium Chloride 0.9% 500 ML IVPB SCH (08:07)
[2018-10-27] MEDS: Insulin Glargine 60 UNITS in Pre-Filled Syringe SC SCH ×2 (09:14→21:54)
--- NOTE | 2018-10-27 14:34 | PDOC.PN ---
- Subjective Encounter Start Date: 10/27/18 Encounter Start Time: 09:00 Subjective: pt up complains of pain to her left iv site - Objective Resuscitation Status - Order Detail: 10/23/18 20:01 Resuscitation Status Routine Resuscitation Status: FULL: Full Resuscitation Vital Signs & Weight: Vital Signs (12 hours) Temp Pulse Resp BP Pulse Ox 10/27/18 07:38 97.5 F L 61 20 126/77 97 Weight Admit Weight 201 lb Weight 201 lb I&O: 10/26/18 10/27/18 10/28/18 06:59 06:59 06:59 Intake Total 1871 1971 240 Balance 1871 1971 240 Result Diagrams: 10/24/18 05:21 10/24/18 05:21 Additional Labs: Accuchecks 10/27/18 10/27/18 10/26/18 12:03 05:33 19:53 POC Glucose 141 H 120 H 189 H 10/26/18 16:05 POC Glucose 188 H Phys Exam - Physical Examination Respiratory: no wheezing, no rales, no rhonchi, wheezing present, clear to auscultation bilateral Cardiovascular: RRR, no significant murmur, no rub, gallop, irregular Gastrointestinal: soft, non-tender, no distention, positive bowel sounds Neurological: moves all 4 limbs Deviation from normal: left saeed has 3 dressing Dx/Plan (1) Cellulitis Code(s): L03.90 - CELLULITIS, UNSPECIFIED Status: Acute Comment: continue IV cefepime and IV vancomycin, follow cultures (2) DM2 (diabetes mellitus, type 2) Code(s): A02.22 - SALMONELLA PNEUMONIA Status: Chronic Comment: Lantus resumed yesterday (3) HTN (hypertension) Code(s): I10 - ESSENTIAL (PRIMARY) HYPERTENSION Status: Chronic Comment: controlled - Plan will continue abx for now -: will give one dose of bumex for now * . Review of Systems - Review of Systems Respiratory: negative: Cough, Dry, Shortness of Breath, Hemoptysis, SOB with Excertion, Pleuritic Pain, Sputum, Wheezing Cardiovascular: negative: chest pain, palpitations, orthopnea, paroxysmal nocturnal dyspnea, edema, light headedness, other - Medications/Allergies Allergies/Adverse Reactions: Allergies Allergy/AdvReac Type Severity Reaction Status Date / Time Spanish ginseng Allergy Verified 10/23/18 20:48 [From Dexatrim Natural] bupropion Allergy Verified 10/23/18 20:48 chromium dinicotinate Allergy Verified 10/23/18 20:48 [From Dexatrim Natural] divalproex sodium Allergy Verified 10/23/18 20:48 [From Depakote] green tea Allergy Verified 10/23/18 20:48 [From Dexatrim Natural] Sulfa (Sulfonamide Allergy Verified 10/23/18 20:48 Antibiotics) Medications: Current Medications Acetaminophen (Tylenol) 650 mg PO Q4H PRN PRN Reason: Headache/Fever/Mild Pain (1-3) Last Admin: 10/24/18 15:15 Dose: 650 mg Acetaminophen (Tylenol) 650 mg [place] Q4H PRN PRN Reason: Headache/Fever/Mild Pain (1-3) Apixaban (Eliquis) 2.5 mg PO BID [facility] Last Admin: 10/27/18 07:54 Dose: 2.5 mg Calcium Carbonate (Tums) 1,000 mg PO Q4H PRN PRN Reason: HEARTBURN/INDIGESTION Last Admin: 10/24/18 19:35 Dose: 1,000 mg Dextrose/Water (Dextrose 50%) 25 gm SLOW IVP PRN PRN PRN Reason: Hypoglycemia Dicyclomine HCl (Bentyl) 20 mg PO BIDPRN PRN PRN Reason: GI Cramping Last Admin: 10/26/18 20:08 Dose: 20 mg Famotidine (Pepcid) 20 mg PO BID [facility] Last Admin: 10/27/18 07:55 Dose: 20 mg Fluoxetine HCl (Prozac) 20 mg PO QPM [facility] Last Admin: 10/26/18 20:08 Dose: 20 mg Gabapentin (Neurontin) 300 mg PO HS [facility] Last Admin: 10/26/18 20:07 Dose: 300 mg Glucagon (Glucagon) 1 mg IM PRN PRN PRN Reason: Hypoglycemia Dextrose/Water (D5w) 1,000 mls @ 0 mls/hr IV .Q0M PRN PRN Reason: Hypoglycemia Cefepime HCl 1 gm/ Sodium (Chloride) 100 mls @ 200 mls/hr IVPB Q8HR [facility] Last Admin: 10/27/18 13:37 Dose: 100 mls Insulin Glargine 60 units/ (Miscellaneous Medication) 0.6 mls @ 0 mls/hr SC BID [facility] Last Admin: 10/27/18 09:14 Dose: 0.6 mls Vancomycin HCl 1.75 gm/ Sodium (Chloride) 500 mls @ 250 mls/hr IVPB 0900 [facility] Last Admin: 10/27/18 08:07 Dose: 500 mls Insulin Human Lispro (Humalog) 0 units SC .MODERATE SLIDING SC PRN PRN Reason: Moderate Correctional Scale Last Admin: 10/26/18 05:31 Dose: 2 unit Insulin Human Lispro (Humalog) 0 units SC .BEDTIME SLIDING SC PRN PRN Reason: Bedtime Correctional Scale Metformin HCl (Glucophage) 1,000 mg PO BID[facility] Last Admin: 10/27/18 07:55 Dose: 1,000 mg Metoprolol Succinate (Toprol Xl) 25 mg PO [facility] Last Admin: 10/27/18 07:54 Dose: 25 mg Miscellaneous Medication (Pharmacy To Dose) 1 each IVPB PRN PRN PRN Reason: sssi Stop: 11/02/18 20:14 Morphine Sulfate (Morphine) 2 mg SLOW IVP Q4H PRN PRN Reason: Moderate to Severe Pain (4-10) Last Admin: 10/27/18 12:22 Dose: 2 mg Ondansetron HCl (Zofran Odt) 4 mg PO Q6H PRN PRN Reason: Nausea/Vomiting Ondansetron HCl (Zofran) 4 mg IVP Q6H PRN PRN Reason: Nausea/Vomiting Pramipexole Dihydrochloride (Mirapex) 1.5 mg PO TIDPRN PRN PRN Reason: Restless legs Last Admin: 10/27/18 08:06 Dose: 1.5 mg
[2018-10-27] MEDS ORDERED: Bumetanide 1 MG/4 ML VIAL IVP SCH (14:45)
[2018-10-27] MEDS ORDERED: Piperacillin/Tazobactam 4.5 GM VIAL ONE (21:44)
[2018-10-27] MEDS: FLUoxetine HCl 20 MG CAP PO SCH (21:51)
[2018-10-27] MEDS: Gabapentin 300 MG CAP PO SCH (21:51)
[2018-10-28] MEDS: Cefepime 1 GM in Sodium Chloride 0.9% 100 ML IVPB SCH ×3 (05:47→21:50)
[2018-10-28 06:45] LABS: Anion Gap 12 mmol/L (10-20); BUN (Urea Nitrogen) 11 mg/dL (9.8-20.1); Calc. Creatinine Clearance 99 mL/min (70-130); Calcium 8.7 mg/dL (7.8-10.44); Carbon Dioxide 28 mmol/L (23-31); Chloride 100 mmol/L (98-107); Estimated GFR-MDRD 73; Glucose 169 mg/dL (80-115); Potassium 3.6 mmol/L (3.5-5.1); Sodium 136 mmol/L (136-145)
[2018-10-28 08:07] LABS: Vancomycin, Trough 8.6 ug/mL
[2018-10-28] MEDS: metFORMIN 500 MG TAB PO SCH ×2 (08:28→16:04)
[2018-10-28] MEDS: Famotidine 20 MG TAB PO SCH ×2 (08:28→20:29)
[2018-10-28] MEDS: Vancomycin HCl 1.75 GM in Sodium Chloride 0.9% 500 ML IVPB SCH (08:29)
[2018-10-28] MEDS: Insulin Glargine 60 UNITS in Pre-Filled Syringe SC SCH ×2 (08:29→20:29)
[2018-10-28] MEDS: Pramipexole Di-HCl 1 MG TAB PO PRN (08:54)
[2018-10-28] MEDS: Apixaban 2.5 MG TAB PO SCH ×2 (08:54→20:29)
[2018-10-28] MEDS ORDERED: Vancomycin HCl 1.25 GM in Sodium Chloride 0.9% 250 ML 250 ML IVPB SCH (12:00)
--- NOTE | 2018-10-28 17:20 | PDOC.HOSPP ---
- Subjective Subjective: pt up in chair no complains - Objective Vital Signs & Weight: Vital Signs (12 hours) Temp Pulse Resp BP Pulse Ox 10/28/18 08:00 97 10/28/18 07:43 97.7 F 59 L 18 127/72 97 Weight Admit Weight 201 lb Weight 201 lb I&O: 10/27/18 10/28/18 10/29/18 06:59 06:59 06:59 Intake Total 1971 2199 Balance 1971 2199 Result Diagrams: 10/24/18 05:21 10/28/18 05:40 Additional Labs: Accuchecks 10/28/18 10/28/18 10/28/18 16:28 11:39 03:08 POC Glucose 71 121 H 161 H 10/27/18 20:08 POC Glucose 146 H ROS - Review of Systems All systems: All other ROS were reviewed and found negative. Respiratory: reports: cough, dry, shortness of breath, hemoptysis, SOB with excertion, pleuritic pain, sputum, wheezing, other Gastrointestinal: reports: nausea, vomitting, abdominal pain, diarrhea, constipation, melena, hematochezia, other - Medication Medications: Active Medications Generic Name Dose Route Start Last Admin Trade Name Freq PRN Reason Stop Dose Admin Acetaminophen 650 mg 10/23/18 20:01 10/24/18 15:15 Tylenol PO 650 mg Q4H PRN Administration Headache/Fever/Mild Pain (1-3) Apixaban 2.5 mg 10/24/18 09:00 10/28/18 08:54 Eliquis PO 2.5 mg BID ALEYDA Administration Calcium Carbonate 1,000 mg 10/24/18 19:06 10/24/18 19:35 Tums PO 1,000 mg Q4H PRN Administration HEARTBURN/INDIGESTION Dicyclomine HCl 20 mg 10/23/18 23:01 10/26/18 20:08 Bentyl PO 20 mg BIDPRN PRN Administration GI Cramping Famotidine 20 mg 10/25/18 21:00 10/28/18 08:28 Pepcid PO 20 mg BID A[facility] Administration Fluoxetine HCl 20 mg 10/24/18 21:00 10/27/18 21:51 Prozac PO 20 mg QPM A[facility] Administration Gabapentin 300 mg 10/24/18 21:00 10/27/18 21:51 Neurontin PO 300 mg HS [facility] Administration Cefepime HCl 1 gm/ Sodium 100 mls @ 200 mls/hr 10/25/18 22:00 10/28/18 16:04 Chloride IVPB 100 mls Q8HR ALEY[facility] Administration Insulin Glargine 60 units/ 0.6 mls @ 0 mls/hr 10/25/18 21:00 10/28/18 08:29 Miscellaneous Medication SC 0.6 mls BID [facility] Administration Insulin Human Lispro 0 units 10/24/18 21:48 10/26/18 05:31 Humalog SC 2 unit .MODERATE SLIDING SC PRN Administration Moderate Correctional Scale Metformin HCl 1,000 mg 10/26/18 08:00 10/28/18 16:04 Glucophage PO 1,000 mg BID-[facility] Administration Metoprolol Succinate 25 mg 10/24/18 09:00 10/28/18 08:28 Toprol Xl PO 25 mg QAM [facility] Administration Morphine Sulfate 2 mg 10/24/18 19:06 10/27/18 22:16 Morphine SLOW IVP 2 mg Q4H PRN Administration Moderate to Severe Pain (4-10) Pramipexole Dihydrochloride 1.5 mg 10/23/18 23:01 10/28/18 08:54 Mirapex PO 1.5 mg TIDPRN PRN Administration Restless legs - Exam Heart: RRR, no murmur, no gallops, no rubs, normal peripheral pulses, irregular , diminshed peripheral pulses, murmur present, II/IV, III/IV Respiratory: CTAB, no wheezes, no rales, no ronchi, normal chest expansion, no tachypnea, normal percussion, rales, rhonchi, tachypneic, wheezes Hosp A/P (1) Cellulitis Code(s): L03.90 - CELLULITIS, UNSPECIFIED Status: Acute (2) DM2 (diabetes mellitus, type 2) Code(s): A02.22 - SALMONELLA PNEUMONIA Status: Chronic (3) HTN (hypertension) Code(s): I10 - ESSENTIAL (PRIMARY) HYPERTENSION Status: Chronic - Plan will continue abx for now. will wait for recommendation per ID. cx indicate Proteus and strep
[2018-10-28] MEDS: Morphine 2 MG/ML SYRINGE SLOW IVP PRN (18:25)
[2018-10-28] MEDS: FLUoxetine HCl 20 MG CAP PO SCH (20:29)
[2018-10-28] MEDS: Gabapentin 300 MG CAP PO SCH (20:29)
--- NOTE | 2018-10-28 23:04 | HP ---
HISTORY: The patient still with some sensitivity in the left lower extremity. No diarrhea. The IV is bothering her somewhat, but no inflammatory changes are noted. Vital signs are normal. The leg is still with the areas of scabbing and surrounding erythema, stasis dermatitis. The cultures from the leg blister fluid with Proteus mirabilis and group B strep. ASSESSMENT AND DISCUSSION: Type 2 diabetes, liver cirrhosis secondary to alcoholism and steatohepatitis, venous insufficiency, self excoriation with self-induced areas of impetigo and cellulitis, left leg, associated with stasis dermatitis and ulcerations. Awaiting on the susceptibility of the Proteus mirabilis, hopefully we will be able to transition her to oral Keflex for discharge planning. She probably will benefit from suppressive penicillin VK 250 b.i.d. since she is at high risk for recrudescence of the cellulitis. Job ID: [id number]
[2018-10-29] MEDS: Cefepime 1 GM in Sodium Chloride 0.9% 100 ML IVPB SCH ×2 (06:08→13:59)
[2018-10-29] MEDS: Famotidine 20 MG TAB PO SCH (07:59)
[2018-10-29] MEDS: Insulin Glargine 60 UNITS in Pre-Filled Syringe SC SCH (08:00)
[2018-10-29] MEDS: metFORMIN 500 MG TAB PO SCH ×2 (08:00→16:36)
[2018-10-29] MEDS: Apixaban 2.5 MG TAB PO SCH (09:21)
[2018-10-29 16:34] VITALS: TEMP 98.5
[2018-10-29 18:50] VITALS: BP 168/85
== END 2018-10-29 18:12 | disposition home or self-care (01) | DRG 603 ==
LOC: ERS 17:28 → T4-B 19:15
PROVIDERS: ADMIT Internal Medicine; ATTEND Internal Medicine
DX: L03.116 Cellulitis of left lower limb (principal); Z96.642 Presence of left artificial hip joint; F32.9 Major depressive disorder, single episode, unspecified; F17.210 Nicotine dependence, cigarettes, uncomplicated; I10 Essential (primary) hypertension; B18.2 Chronic viral hepatitis C; E11.42 Type 2 diabetes mellitus with diabetic polyneuropathy; K70.30 Alcoholic cirrhosis of liver without ascites; B96.20 Unspecified Escherichia coli [E. coli] as the cause of diseases classified elsewhere; Z79.01 Long term (current) use of anticoagulants; Z90.49 Acquired absence of other specified parts of digestive tract; Z86.718 Personal history of other venous thrombosis and embolism; Z79.4 Long term (current) use of insulin
CPT/HCPCS: 36415; 36416; 80048; 80053; 80202; 83880; 85025; 86803; 87040; 87070; 87077; 87186; 87205; 94760; 96365; J0692; J1815; J2270; J2543; J3370; J3490; J7050

== ENCOUNTER 2019-05-13 12:44 | Outpatient (CLI) | payer MEDICARE ==
--- NOTE | 2019-05-13 13:50 | CT ---
CT PULMONARY LUNG SCAN: Date: 05/13/2019 COMPARISON: 03/07/18, 12/08/15. HISTORY: Nicotine dependence. Pulmonary nodules in right upper lobe. TECHNIQUE: Multiple contiguous axial images were obtained in a CT of the chest without contrast for low dose can cer screening protocol. Sagittal and coronal reformats were performed. FINDINGS: There are three small adjacent nodular opacities in the right upper lobe, all measuring less than 4 m m in size. No new pulmonary nodules are seen. No pneumothorax or pleural effusions seen. The heart is normal in size without focal cardiac abnormalities. There are calcifications in the aort a and coronary arteries. No hilar or mediastinal lymphadenopathy appreciated on this limited noncontr ast examination. Mild degenerative changes are seen in the spine. Chest wall soft tissues and visualized subdiaphragma tic structures are unremarkable. IMPRESSION: Lung-RADS Category 2 - Benign findings. Further low dose cancer screening CTs can be performed for sc reening if desired. The nodular opacities in the right upper lobe have remained stable and are less t bernard 4 mm in size, and further follow-up of these specific nodules is not indicated. POS: CET
== END 2019-05-13 12:45 | disposition home or self-care (01) ==
LOC: CT 12:44
PROVIDERS: ATTEND Nurse Practitioner
DX: Z12.2 Encounter for screening for malignant neoplasm of respiratory organs (principal); F17.210 Nicotine dependence, cigarettes, uncomplicated; R91.8 Other nonspecific abnormal finding of lung field
CPT/HCPCS: G0297

== ENCOUNTER 2019-05-18 12:17 | Outpatient (CLI) | payer MEDICARE ==
--- NOTE | 2019-05-21 13:29 | MMO ---
Bilateral MAMMO Bilat Screen [facility]. CLINICAL HISTORY: Patient is 68 years old and is seen for screening. The patient has the following family history of breast cancer: 4 sisters. The patient has no personal history of cancer. VIEWS: The views performed were: bilateral craniocaudal with tomosynthesis and bilateral mediolateral oblique with tomosynthesis. FILMS COMPARED: The present examination has been compared to a prior imaging study performed at [facility] on 03/26/2018. This study has been interpreted with the assistance of computer-aided detection. MAMMOGRAM FINDINGS: There are scattered fibroglandular densities. Finding 1: There are stable benign appearing calcifications seen in both breasts. Finding 2: There are stable benign appearing densities seen in both breasts. There are no suspicious masses, suspicious calcifications, or new areas of architectural distortion. IMPRESSION: THERE IS NO MAMMOGRAPHIC EVIDENCE OF MALIGNANCY. A ROUTINE FOLLOW-UP MAMMOGRAM IN 1 YEAR IS RECOMMENDED. THE RESULTS OF THIS EXAM WERE SENT TO THE PATIENT. ACR BI-RADS Category 2 - Benign finding MAMMOGRAPHY NOTE: 1. A negative mammogram report should not delay a biopsy if a dominant of clinically suspicious mass is present. 2. Approximately 10% to 15% of breast cancers are not detected by mammography. 3. Adenosis and dense breasts may obscure an underlying neoplasm. Reported by: RUSS MCCOLLUM MD Electonically Signed: [id number]
== END 2019-05-18 12:18 | disposition home or self-care (01) ==
LOC: BICMAMMO 12:17
PROVIDERS: ATTEND Nurse Practitioner
DX: Z12.31 Encounter for screening mammogram for malignant neoplasm of breast (principal); Z80.3 Family history of malignant neoplasm of breast
CPT/HCPCS: 77063; 77067

== ENCOUNTER 2020-09-20 14:23 | Outpatient (CLI) | payer MEDICARE | END 2020-09-20 14:24 | disposition home or self-care (01) | LOC: BICCT 14:23 | PROVIDERS: ATTEND Nurse Practitioner | DX: Z12.2 Encounter for screening for malignant neoplasm of respiratory organs (principal); F17.210 Nicotine dependence, cigarettes, uncomplicated | CPT/HCPCS: 71271 ==

== ENCOUNTER 2020-10-11 14:10 | Outpatient (CLI) | payer MEDICARE | END 2020-10-11 14:11 | disposition home or self-care (01) | LOC: BICMAMMO 14:10 | PROVIDERS: ATTEND Nurse Practitioner | DX: Z12.31 Encounter for screening mammogram for malignant neoplasm of breast (principal); Z80.3 Family history of malignant neoplasm of breast | CPT/HCPCS: 77063; 77067 ==

== ENCOUNTER 2020-10-14 13:25 | Outpatient (CLI) | payer MEDICARE ==
[~2020-10-14 13:25] MED LIST: Iopamidol-370 76% 500 ML 1 ML ONE
== END 2020-10-14 13:26 | disposition home or self-care (01) ==
LOC: CT 13:25
PROVIDERS: ATTEND Internal Medicine Cardiovascular Disease
DX: I70.213 Atherosclerosis of native arteries of extremities with intermittent claudication, bilateral legs (principal); I87.2 Venous insufficiency (chronic) (peripheral); K82.8 Other specified diseases of gallbladder; K74.60 Unspecified cirrhosis of liver; R16.1 Splenomegaly, not elsewhere classified; E27.8 Other specified disorders of adrenal gland; I70.90 Unspecified atherosclerosis; R60.0 Localized edema
CPT/HCPCS: 75635; Q9967

== ENCOUNTER 2021-01-04 14:47 | Inpatient (IN) | payer MEDICARE ==
[2021-01-04 16:21] LABS: #Eosinphils 0.1 thou/uL (0.0-0.7); #Lymphocytes 0.8 thou/uL (1.20-3.40); #Monocytes 0.4 thou/uL (0.11-0.59); #Neutrophils 2.9 thou/uL (1.40-6.50); %Basophils 0.5 % (0.0-1.0); %Eosinophils 2.4 % (0.0-10.0); %Lymphocytes 19.5 % (21.0-51.0); %Monocytes 8.3 % (0.0-10.0); %Neutrophils 69.4 % (42.0-75.0); Hemoglobin 11.6 g/dL (12.0-16.0); Mean Corpuscular HGB CONC 31.4 g/dL (32.0-36.0); Mean Corpuscular Hemoglobin 29.2 pg (27.0-31.0); Mean Corpuscular Volume 93.1 fL (78.0-98.0); Mean Platelet Volume 8.9 fL (7.4-10.4); Platelet Count 106 thou/uL (130-400); RBC Distribution Width 14.5 % (11.5-14.5); Red Blood Cell (RBC) Count 3.96 mill/uL (4.20-5.40); White Blood Cell (WBC) Count 4.2 thou/uL (4.8-10.8)
[2021-01-04 16:38] LABS: ALT (SGPT) 25 U/L (8-55); AST (SGOT) 25 U/L (5-34); Albumin 3.2 g/dL (3.4-4.8); Alkaline Phosphatase 134 U/L (40-110); Anion Gap 9 mmol/L (10-20); BUN (Urea Nitrogen) 13 mg/dL (9.8-20.1); Bilirubin, Total 0.4 mg/dL (0.2-1.2); Calc. Creatinine Clearance 0 mL/min (70-130); Calcium 8.7 mg/dL (7.8-10.44); Carbon Dioxide 33 mmol/L (23-31); Chloride 100 mmol/L (98-107); Globulin 4.2 g/dL (2.4-3.5); Glucose 331 mg/dL (80-115); Potassium 4.2 mmol/L (3.5-5.1); Protein, Total 7.4 g/dL (5.8-8.1); Sodium 138 mmol/L (136-145)
[2021-01-04] MEDS ORDERED: Cefepime 1 GM VIAL ONE (17:19)
[2021-01-04] MEDS ORDERED: Vancomycin 1 GM/200 ML BAG ONE (18:30)
[2021-01-04] MEDS ORDERED: Acetaminophen 325 MG TAB PO PRN (19:00)
[2021-01-04] MEDS ORDERED: Ondansetron PF 4 MG/2 ML Vial IVP PRN (19:00)
[2021-01-04] MEDS ORDERED: Dextrose 50% Abboject 50 ML SYRINGE SLOW IVP PRN (19:25)
[2021-01-04] MEDS ORDERED: Dextrose 5% in Water 1,000 ML IV PRN (19:25)
[2021-01-04] MEDS: Gabapentin 300 MG CAP PO SCH (20:29)
[2021-01-04] MEDS: HYDROcodone/Acetaminophen 5/325 mg Tablet PO PRN (20:29)
[2021-01-04] MEDS: Apixaban 5 MG TAB PO SCH (20:30)
[2021-01-04] MEDS: Lantus 1000 UNITS/10 ML VIAL SC SCH (20:43)
[2021-01-04] MEDS ORDERED: Non-Formulary Item 1 EACH (Insulin Aspart [Novolog Flexpen] 100 UNIT/ML Insuln.Pen) SC SCH (21:00)
[2021-01-05] MEDS ORDERED: hydrALAZINE 20 MG/ML VIAL SLOW IVP PRN (01:56)
[2021-01-05] MEDS ORDERED: Cefepime 1 GM in Sodium Chloride 0.9% 100 ML IVPB SCH (05:00)
[2021-01-05 07:49] LABS: Anion Gap 9 mmol/L (10-20); BUN (Urea Nitrogen) 12 mg/dL (9.8-20.1); Calc. Creatinine Clearance 99 mL/min (70-130); Calcium 8.5 mg/dL (7.8-10.44); Carbon Dioxide 31 mmol/L (23-31); Chloride 103 mmol/L (98-107); Glucose 213 mg/dL (80-115); Potassium 4.4 mmol/L (3.5-5.1); Sodium 139 mmol/L (136-145)
[2021-01-05 07:51] LABS: #Eosinphils 0.1 thou/uL (0.0-0.7); #Lymphocytes 0.8 thou/uL (1.20-3.40); #Monocytes 0.3 thou/uL (0.11-0.59); #Neutrophils 2.8 thou/uL (1.40-6.50); %Eosinophils 2.7 % (0.0-10.0); %Lymphocytes 18.7 % (21.0-51.0); %Monocytes 7.9 % (0.0-10.0); %Neutrophils 69.7 % (42.0-75.0); Hemoglobin 10.9 g/dL (12.0-16.0); Mean Corpuscular HGB CONC 31.1 g/dL (32.0-36.0); Mean Corpuscular Hemoglobin 28.9 pg (27.0-31.0); Mean Platelet Volume 9.4 fL (7.4-10.4); Platelet Count 100 thou/uL (130-400); RBC Distribution Width 14.3 % (11.5-14.5); Red Blood Cell (RBC) Count 3.76 mill/uL (4.20-5.40); White Blood Cell (WBC) Count 4.1 thou/uL (4.8-10.8)
[2021-01-05] MEDS ORDERED: VANCOMYCIN 1.75 GM/350 ML BAG 1.75 GM in Premix Bag 1 BAG IVPB SCH (09:00)
[2021-01-05] MEDS: HumaLOG 300 UNITS/3 ML VIAL SC SCH ×2 (09:16→16:30)
[2021-01-05] MEDS: Gabapentin 300 MG CAP PO SCH ×2 (09:17→20:16)
[2021-01-05] MEDS: FLUoxetine HCl 20 MG CAP PO SCH (09:17)
[2021-01-05] MEDS: Lisinopril 10 MG TAB PO SCH (09:17)
[2021-01-05] MEDS: Lantus 1000 UNITS/10 ML VIAL SC SCH ×2 (09:18→20:17)
[2021-01-05] MEDS: Apixaban 5 MG TAB PO SCH ×2 (09:18→20:16)
[2021-01-05] MEDS ORDERED: Iopamidol-370 76% 500 ML 1 ML ONE (09:56)
[2021-01-05] MEDS ORDERED: Iopamidol 370 76% 50 ML VIAL FS ONE (09:56)
[2021-01-05] MEDS ORDERED: Pramipexole Di-HCl 1 MG TAB PO SCH ×2 (12:15→15:00)
[2021-01-05] MEDS ORDERED: PRAMIPEXOLE DI HCL 1.5 MG PO SCH (12:45)
[2021-01-05 12:49] LABS: SARS-CoV-2 PCR by NAA Not Detected (NotDetected)
[2021-01-05] MEDS: PRAMIPEXOLE DI HCL 1.5 MG PO SCH ×2 (15:02→20:20)
[2021-01-05] MEDS ORDERED: Furosemide 20 MG/2 ML VIAL SLOW IVP SCH (15:15)
[2021-01-05] MEDS ORDERED: methylPREDNISolone Sod Succ 40 MG VIAL IVP SCH (16:00)
[2021-01-05] MEDS: HYDROcodone/Acetaminophen 5/325 mg Tablet PO PRN (20:16)
[2021-01-06] MEDS: HumaLOG 300 UNITS/3 ML VIAL SC PRN ×2 (06:02→12:21)
[2021-01-06] MEDS: Gabapentin 300 MG CAP PO SCH ×2 (07:57→20:35)
[2021-01-06] MEDS: Lisinopril 10 MG TAB PO SCH (07:57)
[2021-01-06] MEDS: Lantus 1000 UNITS/10 ML VIAL SC SCH ×2 (07:58→20:41)
[2021-01-06] MEDS: FLUoxetine HCl 20 MG CAP PO SCH (07:58)
[2021-01-06] MEDS: Apixaban 5 MG TAB PO SCH ×2 (07:58→20:35)
[2021-01-06] MEDS: HumaLOG 300 UNITS/3 ML VIAL SC SCH ×2 (08:00→17:00)
[2021-01-06] MEDS: PRAMIPEXOLE DI HCL 1.5 MG PO SCH ×3 (08:03→20:36)
[2021-01-06 08:23] VITALS: BMI 35.9
[2021-01-06] MEDS: Nicotine 14 MG PATCH TD SCH (15:27)
[2021-01-06] MEDS ORDERED: Furosemide 20 MG/2 ML VIAL SLOW IVP SCH (16:30)
[2021-01-06] MEDS ORDERED: methylPREDNISolone Sod Succ 40 MG VIAL IVP SCH (17:00)
[2021-01-06] MEDS ORDERED: Cephalexin 250 MG CAP PO SCH (18:30)
[2021-01-06] MEDS: HYDROcodone/Acetaminophen 5/325 mg Tablet PO PRN (20:35)
[2021-01-07] MEDS: Cephalexin 250 MG CAP PO SCH ×5 (00:22→23:04)
[2021-01-07] MEDS: HumaLOG 300 UNITS/3 ML VIAL SC SCH ×2 (08:37→17:18)
[2021-01-07] MEDS: Apixaban 5 MG TAB PO SCH ×2 (08:37→20:27)
[2021-01-07] MEDS: FLUoxetine HCl 20 MG CAP PO SCH (08:37)
[2021-01-07] MEDS: Gabapentin 300 MG CAP PO SCH ×2 (08:37→20:27)
[2021-01-07] MEDS: Lantus 1000 UNITS/10 ML VIAL SC SCH ×2 (08:39→20:28)
[2021-01-07] MEDS: Lisinopril 10 MG TAB PO SCH ×2 (08:43→20:27)
[2021-01-07] MEDS: PRAMIPEXOLE DI HCL 1.5 MG PO SCH ×3 (08:47→20:28)
[2021-01-07 10:56] LABS: Vancomycin, Trough 1.9 ug/mL
[2021-01-07] MEDS ORDERED: Polyethylene Glycol 3350 17 GM Packet PO SCH (11:15)
[2021-01-07] MEDS: HumaLOG 300 UNITS/3 ML VIAL SC PRN ×2 (12:23→23:04)
[2021-01-07] MEDS: Nicotine 14 MG PATCH TD SCH (14:49)
[2021-01-07] MEDS: HYDROcodone/Acetaminophen 5/325 mg Tablet PO PRN (20:27)
[2021-01-07] MEDS: Senokot S 8.6-50 MG TAB PO SCH (20:30)
[2021-01-08] MEDS: Cephalexin 250 MG CAP PO SCH ×3 (05:38→18:07)
[2021-01-08] MEDS: FLUoxetine HCl 20 MG CAP PO SCH (08:11)
[2021-01-08] MEDS: PRAMIPEXOLE DI HCL 1.5 MG PO SCH ×3 (08:11→20:30)
[2021-01-08] MEDS: Apixaban 5 MG TAB PO SCH ×2 (08:11→20:24)
[2021-01-08] MEDS: Gabapentin 300 MG CAP PO SCH ×2 (08:16→20:24)
[2021-01-08] MEDS: HumaLOG 300 UNITS/3 ML VIAL SC SCH (08:16)
[2021-01-08] MEDS: Senokot S 8.6-50 MG TAB PO SCH ×2 (08:17→20:24)
[2021-01-08] MEDS: Polyethylene Glycol 3350 17 GM Packet PO SCH (08:18)
[2021-01-08] MEDS: Lantus 1000 UNITS/10 ML VIAL SC SCH ×3 (08:19→20:25)
[2021-01-08 13:17] LABS: HBCM Index 0.06 S/CO (0-0.79); HBSAg Index 0.28 S/CO (0-0.99); Hep A IgM AB Non-Reactive (NonReactive); Hep A IgM S/CO 0.09 S/CO (0-0.79); Hep B Surf Ag Non-Reactive S/CO (NonReactive); Hep C IgG Ab Non-Reactive (NonReactive); Hep C Index 0.08 S/CO (0-0.79); Hepatitis B Core IgM Abs Non-Reactive (NonReactive)
[2021-01-08] MEDS: Nicotine 14 MG PATCH TD SCH (14:45)
[2021-01-08] MEDS: Lisinopril 10 MG TAB PO SCH (20:24)
[2021-01-08] MEDS: HumaLOG 300 UNITS/3 ML VIAL SC PRN (20:27)
[2021-01-08] MEDS: HYDROcodone/Acetaminophen 5/325 mg Tablet PO PRN (21:26)
[2021-01-09] MEDS: Cephalexin 250 MG CAP PO SCH ×3 (01:12→12:24)
[2021-01-09] MEDS: Senokot S 8.6-50 MG TAB PO SCH (07:53)
[2021-01-09] MEDS: Apixaban 5 MG TAB PO SCH (07:53)
[2021-01-09] MEDS: Polyethylene Glycol 3350 17 GM Packet PO SCH (07:53)
[2021-01-09] MEDS: Gabapentin 300 MG CAP PO SCH (07:54)
[2021-01-09] MEDS: Lantus 1000 UNITS/10 ML VIAL SC SCH (07:55)
[2021-01-09] MEDS: FLUoxetine HCl 20 MG CAP PO SCH (07:55)
[2021-01-09] MEDS: PRAMIPEXOLE DI HCL 1.5 MG PO SCH (08:01)
[2021-01-09 11:43] VITALS: BP 113/70; TEMP 97.8
[2021-01-09] MEDS: HumaLOG 300 UNITS/3 ML VIAL SC PRN (12:21)
== END 2021-01-09 13:48 | DRG 603 ==
LOC: ERS 14:47 → T4-A 17:35
PROVIDERS: ADMIT Internal Medicine; ATTEND Internal Medicine
DX: L03.116 Cellulitis of left lower limb (principal); L97.929 Non-pressure chronic ulcer of unspecified part of left lower leg with unspecified severity; I82.412 Acute embolism and thrombosis of left femoral vein; E11.65 Type 2 diabetes mellitus with hyperglycemia; E11.51 Type 2 diabetes mellitus with diabetic peripheral angiopathy without gangrene; I10 Essential (primary) hypertension; E11.622 Type 2 diabetes mellitus with other skin ulcer; K42.9 Umbilical hernia without obstruction or gangrene; K74.60 Unspecified cirrhosis of liver; Z20.822 Contact with and (suspected) exposure to COVID-19; Z96.642 Presence of left artificial hip joint; F17.210 Nicotine dependence, cigarettes, uncomplicated; F32.9 Major depressive disorder, single episode, unspecified; I87.2 Venous insufficiency (chronic) (peripheral); E66.9 Obesity, unspecified; Z68.36 Body mass index [BMI] 36.0-36.9, adult; Z86.718 Personal history of other venous thrombosis and embolism; Z88.5 Allergy status to narcotic agent; Z88.2 Allergy status to sulfonamides; Z88.8 Allergy status to other drugs, medicaments and biological substances; Z91.048 Other nonmedicinal substance allergy status; Z90.49 Acquired absence of other specified parts of digestive tract; Z71.6 Tobacco abuse counseling; Z98.51 Tubal ligation status
CPT/HCPCS: 36415; 36416; 74177; 80048; 80053; 80074; 80202; 83605; 85025; 85652; 86140; 93923; 96365; 96375; J0692; J1940; J2920; J3370; J3490; Q9967; U0003; U0005

== ENCOUNTER 2021-09-20 13:34 | Outpatient (CLI) | payer MEDICARE | END 2021-09-20 13:35 | disposition home or self-care (01) | LOC: BICCT 13:34 | PROVIDERS: ATTEND Nurse Practitioner | DX: Z12.2 Encounter for screening for malignant neoplasm of respiratory organs (principal); F17.210 Nicotine dependence, cigarettes, uncomplicated | CPT/HCPCS: 71271 ==

== ENCOUNTER 2022-11-29 19:23 | Inpatient (IN) | payer MEDICARE ==
[2022-11-29 21:56] VITALS: BMI 29.5
[2022-11-29] MEDS ORDERED: Senokot S 8.6-50 MG TAB PO PRN (23:50)
[2022-11-29] MEDS ORDERED: Glucagon 1 MG/ML KIT IM PRN (23:58)
[2022-11-29] MEDS ORDERED: Dextrose 50% Abboject 50 ML SYRINGE SLOW IVP PRN (23:58)
[2022-11-29] MEDS ORDERED: Dextrose 5% in Water 1,000 ML IV PRN (23:58)
[2022-11-30] MEDS ORDERED: Vancomycin 1.5 GRAM/300 ML BAG 1.5 GM in Premix Bag 1 BAG IVPB SCH (01:00)
[2022-11-30] MEDS ORDERED: Cefepime 1 GM in Sodium Chloride 0.9% 100 ML IVPB SCH (03:00)
[2022-11-30] MEDS ORDERED: Lorazepam 2 MG/ML VIAL SLOW IVP PRN (07:10)
[2022-11-30 07:35] LABS: #Eosinphils 0.1 thou/uL (0.0-0.7); #Monocytes 0.3 thou/uL (0.11-0.59); #Neutrophils 1.7 thou/uL (1.40-6.50); %Eosinophils 3.5 % (0.0-10.0); %Lymphocytes 27.6 % (21.0-51.0); %Monocytes 9.8 % (0.0-10.0); %Neutrophils 57.8 % (42.0-75.0); Hematocrit 32.9 % (36.0-47.0); Hemoglobin 10.1 g/dL (12.0-16.0); Mean Corpuscular HGB CONC 30.7 g/dL (32.0-36.0); Mean Corpuscular Volume 97.6 fl (78.0-98.0); Mean Platelet Volume 11.5 fL (7.4-10.4); RBC Distribution Width 15.2 % (11.5-14.5); Red Blood Cell (RBC) Count 3.37 mill/uL (4.20-5.40); White Blood Cell (WBC) Count 2.9 10x3/uL (4.8-10.8)
[2022-11-30 07:40] LABS: Platelet Count 82 10x3/uL (130-400)
[2022-11-30 07:52] LABS: ALT (SGPT) 21 U/L (8-55); AST (SGOT) 23 U/L (5-34); Albumin 2.6 g/dL (3.4-4.8); Alkaline Phosphatase 118 U/L (40-110); Anion Gap 8 mmol/L (10-20); BUN (Urea Nitrogen) 20 mg/dL (9.8-20.1); Bilirubin, Total 0.5 mg/dL (0.2-1.2); Calc. Creatinine Clearance 60 mL/min (70-130); Carbon Dioxide 25 mmol/L (23-31); Chloride 108 mmol/L (98-107); Estimated GFR 56; Globulin 3.6 g/dL (2.4-3.5); Glucose 276 mg/dL (83-110); Potassium 4.3 mmol/L (3.5-5.1); Protein, Total 6.2 g/dL (5.8-8.1); Sodium 137 mmol/L (136-145)
[2022-11-30] MEDS ORDERED: Gabapentin 300 MG CAP PO SCH (09:00)
[2022-11-30] MEDS: Furosemide 40 MG TAB PO SCH ×2 (09:22→15:34)
[2022-11-30] MEDS: FLUoxetine HCl 20 MG CAP PO SCH (09:22)
[2022-11-30] MEDS: Senokot S 8.6-50 MG TAB PO SCH ×2 (09:23→20:47)
[2022-11-30] MEDS: Apixaban 5 MG TAB PO SCH ×2 (09:23→20:48)
[2022-11-30] MEDS: HYDROcodone/Acetaminophen 5/325 mg Tablet PO PRN ×3 (09:32→20:54)
[2022-11-30 10:38] LABS: Amphetamine Not Detected (NotDetected); Barbiturates Screen Not Detected (NotDetected); Benzodiazepine Screen Not Detected (NotDetected); Cocaine Metabolite Screen Not Detected (NotDetected); Methadone Not Detected (NotDetected); Methamphetamine Not Detected (NotDetected); Opiate Screen Detected (NotDetected); Oxycodone Screen Not Detected (NotDetected); Phencyclidine (PCP) Not Detected (NotDetected); THC/Cannabinoid Screen Not Detected (NotDetected); Tricyclic Screen Not Detected (NotDetected)
[2022-11-30] MEDS: Cephalexin 250 MG CAP PO SCH ×2 (15:32→20:47)
[2022-11-30] MEDS: HumaLOG 300 UNITS/3 ML VIAL SC PRN ×2 (17:42→20:46)
[2022-11-30] MEDS: Insulin Glargine 30 UNITS/0.3 ML VIAL SC SCH (20:46)
[2022-11-30] MEDS: Lisinopril 10 MG TAB PO SCH (20:47)
[2022-11-30] MEDS: Gabapentin 300 MG CAP PO SCH (20:47)
[2022-11-30] MEDS: Sulfameth/Trimethoprim DS 800-160mg TAB PO SCH (20:47)
[2022-11-30] MEDS: Pramipexole Di-HCl 1 MG TAB PO SCH (20:51)
[2022-12-01] MEDS ORDERED: VANCOMYCIN 1.25 GM/250 ML BAG 1.25 GM in Premix Bag 1 BAG IVPB SCH (01:00)
[2022-12-01] MEDS: HYDROcodone/Acetaminophen 5/325 mg Tablet PO PRN ×3 (07:04→20:51)
[2022-12-01 07:26] LABS: #Eosinphils 0.1 thou/uL (0.0-0.7); #Monocytes 0.3 thou/uL (0.11-0.59); %Basophils 0.6 % (0.0-1.0); %Eosinophils 3.3 % (0.0-10.0); %Lymphocytes 26.6 % (21.0-51.0); %Monocytes 9.3 % (0.0-10.0); %Neutrophils 59.9 % (42.0-75.0); Hematocrit 32.6 % (36.0-47.0); Hemoglobin 10.1 g/dL (12.0-16.0); Mean Corpuscular Hemoglobin 29.9 pg (27.0-31.0); Mean Corpuscular Volume 96.4 fl (78.0-98.0); Mean Platelet Volume 11.6 fL (7.4-10.4); RBC Distribution Width 15.1 % (11.5-14.5); Red Blood Cell (RBC) Count 3.38 mill/uL (4.20-5.40); White Blood Cell (WBC) Count 3.3 10x3/uL (4.8-10.8)
[2022-12-01 07:32] LABS: Platelet Count 84 10x3/uL (130-400)
[2022-12-01 07:52] LABS: Anion Gap 9 mmol/L (10-20); BUN (Urea Nitrogen) 19 mg/dL (9.8-20.1); Calc. Creatinine Clearance 59 mL/min (70-130); Calcium 8.1 mg/dL (7.8-10.44); Carbon Dioxide 25 mmol/L (23-31); Chloride 107 mmol/L (98-107); Estimated GFR 55; Glucose 121 mg/dL (83-110); Magnesium 1.7 mg/dL (1.6-2.6); Potassium 4.2 mmol/L (3.5-5.1); Sodium 137 mmol/L (136-145)
[2022-12-01] MEDS: Gabapentin 300 MG CAP PO SCH ×3 (08:48→20:52)
[2022-12-01] MEDS: Pramipexole Di-HCl 1 MG TAB PO SCH ×3 (08:48→20:50)
[2022-12-01] MEDS: Apixaban 5 MG TAB PO SCH (08:49)
[2022-12-01] MEDS: Furosemide 40 MG TAB PO SCH ×2 (08:49→14:33)
[2022-12-01] MEDS: Cephalexin 250 MG CAP PO SCH ×3 (08:49→20:53)
[2022-12-01] MEDS: Sulfameth/Trimethoprim DS 800-160mg TAB PO SCH ×2 (08:49→20:52)
[2022-12-01] MEDS: Senokot S 8.6-50 MG TAB PO SCH ×2 (08:49→20:52)
[2022-12-01] MEDS: FLUoxetine HCl 20 MG CAP PO SCH (08:49)
[2022-12-01] MEDS: HumaLOG 300 UNITS/3 ML VIAL SC PRN ×3 (12:41→20:53)
[2022-12-01] MEDS: Lisinopril 10 MG TAB PO SCH (20:52)
[2022-12-01] MEDS: Insulin Glargine 30 UNITS/0.3 ML VIAL SC SCH (20:53)
[2022-12-02] MEDS: HYDROcodone/Acetaminophen 5/325 mg Tablet PO PRN ×3 (04:38→22:38)
[2022-12-02 06:42] LABS: #Basophils 0.1 thou/uL (0.0-0.2); #Eosinphils 0.2 thou/uL (0.0-0.7); #Monocytes 0.4 thou/uL (0.11-0.59); #Neutrophils 2.7 thou/uL (1.40-6.50); %Basophils 1.1 % (0.0-1.0); %Eosinophils 3.3 % (0.0-10.0); %Lymphocytes 25.3 % (21.0-51.0); %Monocytes 9.5 % (0.0-10.0); %Neutrophils 60.4 % (42.0-75.0); Hematocrit 31.3 % (36.0-47.0); Hemoglobin 9.8 g/dL (12.0-16.0); Mean Corpuscular HGB CONC 31.3 g/dL (32.0-36.0); Mean Corpuscular Hemoglobin 30.2 pg (27.0-31.0); Mean Corpuscular Volume 96.6 fl (78.0-98.0); Mean Platelet Volume 11.8 fL (7.4-10.4); RBC Distribution Width 15.3 % (11.5-14.5); Red Blood Cell (RBC) Count 3.24 mill/uL (4.20-5.40); White Blood Cell (WBC) Count 4.5 10x3/uL (4.8-10.8)
[2022-12-02 07:06] LABS: Anion Gap 12 mmol/L (10-20); BUN (Urea Nitrogen) 21 mg/dL (9.8-20.1); Calc. Creatinine Clearance 53 mL/min (70-130); Calcium 8.1 mg/dL (7.8-10.44); Carbon Dioxide 27 mmol/L (23-31); Chloride 101 mmol/L (98-107); Estimated GFR 48; Glucose 106 mg/dL (83-110); Magnesium 1.6 mg/dL (1.6-2.6); Potassium 4.1 mmol/L (3.5-5.1); Sodium 136 mmol/L (136-145)
[2022-12-02 07:22] LABS: Platelet Count 87 10x3/uL (130-400)
[2022-12-02] MEDS: FLUoxetine HCl 20 MG CAP PO SCH (08:49)
[2022-12-02] MEDS: Sulfameth/Trimethoprim DS 800-160mg TAB PO SCH ×2 (08:49→22:37)
[2022-12-02] MEDS: Pramipexole Di-HCl 1 MG TAB PO SCH ×3 (08:49→22:36)
[2022-12-02] MEDS: Cephalexin 250 MG CAP PO SCH ×3 (08:49→22:37)
[2022-12-02] MEDS: Gabapentin 300 MG CAP PO SCH ×3 (08:49→22:37)
[2022-12-02] MEDS: Senokot S 8.6-50 MG TAB PO SCH ×2 (08:50→22:39)
[2022-12-02] MEDS: Terbinafine 1% Cream 15 GM Tube TOP SCH (10:31)
[2022-12-02] MEDS: HumaLOG 300 UNITS/3 ML VIAL SC PRN ×3 (12:51→22:39)
[2022-12-02] MEDS: Insulin Glargine 30 UNITS/0.3 ML VIAL SC SCH (22:36)
[2022-12-02] MEDS: Lisinopril 10 MG TAB PO SCH (22:37)
[2022-12-02] MEDS: Acetaminophen 325 MG TAB PO PRN (22:38)
[2022-12-03 05:53] LABS: #Eosinphils 0.2 thou/uL (0.0-0.7); #Monocytes 0.3 thou/uL (0.11-0.59); #Neutrophils 2.6 thou/uL (1.40-6.50); %Basophils 0.7 % (0.0-1.0); %Eosinophils 3.6 % (0.0-10.0); %Lymphocytes 25.8 % (21.0-51.0); %Monocytes 6.9 % (0.0-10.0); %Neutrophils 62.3 % (42.0-75.0); Hematocrit 33.7 % (36.0-47.0); Hemoglobin 10.5 g/dL (12.0-16.0); Mean Corpuscular HGB CONC 31.2 g/dL (32.0-36.0); Mean Corpuscular Hemoglobin 30.2 pg (27.0-31.0); Mean Corpuscular Volume 96.8 fl (78.0-98.0); Mean Platelet Volume 11.5 fL (7.4-10.4); Platelet Count 102 10x3/uL (130-400); RBC Distribution Width 15.5 % (11.5-14.5); Red Blood Cell (RBC) Count 3.48 mill/uL (4.20-5.40); White Blood Cell (WBC) Count 4.2 10x3/uL (4.8-10.8)
[2022-12-03 06:14] LABS: Anion Gap 9 mmol/L (10-20); BUN (Urea Nitrogen) 20 mg/dL (9.8-20.1); Calc. Creatinine Clearance 49 mL/min (70-130); Calcium 8.5 mg/dL (7.8-10.44); Carbon Dioxide 29 mmol/L (23-31); Chloride 99 mmol/L (98-107); Estimated GFR 44; Glucose 102 mg/dL (83-110); Magnesium 1.8 mg/dL (1.6-2.6); Potassium 4.3 mmol/L (3.5-5.1); Sodium 133 mmol/L (136-145)
[2022-12-03] MEDS: HYDROcodone/Acetaminophen 5/325 mg Tablet PO PRN (06:41)
[2022-12-03] MEDS: Acetaminophen 325 MG TAB PO PRN (06:41)
[2022-12-03] MEDS ORDERED: Furosemide 40 MG TAB PO SCH (07:30)
[2022-12-03 08:57] VITALS: TEMP 97.6
[2022-12-03] MEDS: FLUoxetine HCl 20 MG CAP PO SCH (09:00)
[2022-12-03] MEDS: Gabapentin 300 MG CAP PO SCH (09:00)
[2022-12-03] MEDS: Cephalexin 250 MG CAP PO SCH (09:00)
[2022-12-03] MEDS: Senokot S 8.6-50 MG TAB PO SCH (09:02)
[2022-12-03] MEDS: Pramipexole Di-HCl 1 MG TAB PO SCH (09:03)
[2022-12-03] MEDS: Sulfameth/Trimethoprim DS 800-160mg TAB PO SCH (09:08)
[2022-12-03] MEDS: Terbinafine 1% Cream 15 GM Tube TOP SCH (11:22)
[2022-12-03 12:54] VITALS: BP 131/74
== END 2022-12-03 15:00 | disposition home or self-care (01) | DRG 638 ==
LOC: SURG B 21:01
PROVIDERS: ADMIT Internal Medicine Nephrology; ATTEND Internal Medicine
DX: E11.628 Type 2 diabetes mellitus with other skin complications (principal); D61.818 Other pancytopenia; L03.116 Cellulitis of left lower limb; E87.1 Hypo-osmolality and hyponatremia; I82.419 Acute embolism and thrombosis of unspecified femoral vein; K70.30 Alcoholic cirrhosis of liver without ascites; E11.69 Type 2 diabetes mellitus with other specified complication; F10.10 Alcohol abuse, uncomplicated; W19.XXXA Unspecified fall, initial encounter; E11.22 Type 2 diabetes mellitus with diabetic chronic kidney disease; N18.30 Chronic kidney disease, stage 3 unspecified; I12.9 Hypertensive chronic kidney disease with stage 1 through stage 4 chronic kidney disease, or unspecified chronic kidney disease; Z90.49 Acquired absence of other specified parts of digestive tract; Z88.2 Allergy status to sulfonamides; Z88.8 Allergy status to other drugs, medicaments and biological substances; Z79.899 Other long term (current) drug therapy; Z79.01 Long term (current) use of anticoagulants; Z79.4 Long term (current) use of insulin; E11.51 Type 2 diabetes mellitus with diabetic peripheral angiopathy without gangrene; I27.20 Pulmonary hypertension, unspecified
CPT/HCPCS: 36415; 36416; 71045; 80048; 80053; 80306; 80307; 83735; 85025; 93306; 93970; 97139; J0692; J1815; J3370; J3490

== ENCOUNTER 2024-02-26 12:16 | Day surgery (SDC) | payer MEDICARE ==
[2024-02-25 12:08] VITALS: BMI 32.8
[2024-02-26 14:24] LABS: #Basophils 0.04 10x3/uL (0.0-0.2); %Basophils 1.1 % (0.0-1.0); %Eosinophils 4.7 % (0.0-10.0); %Lymphocytes 19.5 % (21.0-51.0); %Monocytes 7.7 % (0.0-10.0); %Neutrophils 66.7 % (42.0-75.0); Hematocrit 38.8 % (36.0-47.0); Mean Corpuscular HGB CONC 30.9 g/dL (32.0-36.0); Mean Corpuscular Hemoglobin 27.7 pg (27.0-31.0); Mean Corpuscular Volume 89.6 fL (78.0-98.0); Mean Platelet Volume 12.1 fL (7.4-10.4); Platelet Count 113 10x3/uL (130-400); RBC Distribution Width 16.5 % (11.5-14.5); Red Blood Cell (RBC) Count 4.33 mill/uL (4.20-5.40)
[2024-02-26 14:31] LABS: Anion Gap 12 mmol/L (10-20); BUN (Urea Nitrogen) 23 mg/dL (9.8-20.1); Calc. Creatinine Clearance 63 mL/min (70-130); Calcium 9.4 mg/dL (7.8-10.44); Carbon Dioxide 26 mmol/L (23-31); Chloride 104 mmol/L (98-107); Estimated GFR 59; Glucose 274 mg/dL (83-110); Potassium 4.3 mmol/L (3.5-5.1); Sodium 138 mmol/L (136-145)
== END 2024-02-26 18:35 | disposition home or self-care (01) ==
LOC: SDC 12:16
PROVIDERS: ATTEND Internal Medicine Cardiovascular Disease
PROC: 06H03DZ Insertion of Intraluminal Device into Inferior Vena Cava, Percutaneous Approach (ICD-10-PCS; principal; 2024-02-26)
DX: I82.402 Acute embolism and thrombosis of unspecified deep veins of left lower extremity (principal); I10 Essential (primary) hypertension; I25.10 Atherosclerotic heart disease of native coronary artery without angina pectoris; E11.9 Type 2 diabetes mellitus without complications; E78.5 Hyperlipidemia, unspecified; J45.909 Unspecified asthma, uncomplicated; F41.9 Anxiety disorder, unspecified; F31.9 Bipolar disorder, unspecified; F17.210 Nicotine dependence, cigarettes, uncomplicated; Z90.49 Acquired absence of other specified parts of digestive tract; Z96.642 Presence of left artificial hip joint; Z88.2 Allergy status to sulfonamides; Z88.8 Allergy status to other drugs, medicaments and biological substances; Z91.018 Allergy to other foods; Z88.1 Allergy status to other antibiotic agents; Z79.4 Long term (current) use of insulin; Z79.51 Long term (current) use of inhaled steroids; Z79.899 Other long term (current) drug therapy
CPT/HCPCS: 37191; 80048; 82962; 85025; C1769; C1880; C1894; 36416